=== PATIENT | female | born 1945 | race Caucasian/White ===

== ENCOUNTER 2024-07-02 15:48 | Inpatient (IN) | payer MEDICARE, OTHER, SELFPAY ==
[2024-07-02] VITALS (10 sets, daily range): BP systolic 107–153; BP diastolic 50–106
--- NOTE | 2024-07-02 10:38 | ED.GENMED ---
History of Present Illness
<Damian Flynn PA-C - Last Filed: 07/02/24 14:14>
General
Chief Complaint: Weakness
Source: patient
Time Seen by Provider: 07/02/24 09:53
History of Present Illness
History of Present Illness:
79-year-old female with past medical history of hypertension and hyperlipidemia presenting to the emergency department for evaluation of persistent chills/rigors that she feels has been ongoing since the beginning of May. Initially when
symptoms started patient states she had continuous diarrhea which lasted about 1 week and notes that the diarrhea has been waxing and waning but has not had this for the last 1 to 2 weeks. She states that while she has felt very hot she has not
checked her temperature during the time where she has had the symptoms. Patient denies any other symptoms including nausea, vomiting, change in oral intake, chest pain, shortness of breath, abdominal pain. She does admit to feeling generally weak
but this is usually only when her chills/rigors are occurring.
Past History
<Damian Flynn PA-C - Last Filed: 07/02/24 14:14>
Past History
ED Past Medical History: HTN and Hypercholesterolemia
ED Past Surgical History: None
Social History
Tobacco: Non-smoker
Alcohol: Daily (wine 1-2 glasses)
Drug: None
Personal:
Living: with family
Review of Systems
<Damian Flynn PA-C - Last Filed: 07/02/24 14:14>
Review of Systems
All Other Systems: ROS reviewed and negative except as documented in HPI and ROS
Phy Exam
<Damian Flynn PA-C - Last Filed: 07/02/24 14:14>
Physical Exam
Physical Exam:
GENERAL: Alert , in no apparent distress
EYE: clear conjunctiva b/l
HEAD: NCAT
ENT: mmm.
CARDIAC: Regular rate and rhythm .
LUNGS: Clear breath sounds bilaterally, no acute respiratory distress, no wheezes/rales/rhonchi
ABDOMEN: Soft, without focal tenderness, no r/g, no cvat, negative Lovelace sign, no tenderness at McBurney's point
NEUROLOGICAL: Alert and oriented
SKIN: Warm and dry, skin intact.
MUSCULOSKELETAL: well perfused.
PSYCH: Normal and appropriate interaction.
Scores
<Damian Flynn PA-C - Last Filed: 07/02/24 14:14>
Heart Failure Risk
Heart Failure Risk Score: Not Applicable
Heart Score for Chest Pain Patients
STEMI patient?: Not applicable
Withdrawal Assessment of Alcohol
Withdrawal Assessment Completed?: Not applicable
Course
<Damian Flynn PA-C - Last Filed: 07/02/24 14:14>
Orders/Labs/Results
Orders:
Orders
07/02/24 10:25
Complete Blood Count/With Diff Urgent
Comprehensive Metabolic Panel Urgent
Lactic Acid Q4H
Comment: CANCEL 2nd LACTIC ACID IF 1st LACTIC ACID IS LESS THAN 2
Lipase Urgent
Magnesium Urgent
TSH Urgent
Urinalysis Reflex To Culture Urgent
Date Specimen was Collected: 07/02/24
Time Specimen was Collected: 10:16
Urine Microscopic Reflex Cult Urgent
Blood Culture Q30M
[facility] Source: Blood/Venous
Specimen Description:
Blood Culture Q30M
[facility] Source: Blood/Venous
Specimen Description:
Urine Culture Urgent
[facility] Source: U
Specimen Description:
Date Specimen was Collected: 07/02/24
Time Specimen was Collected: 10:16
07/02/24 11:21
CT Abd/pel Without Iv Or Oral Urgent
Comment:
Reason For Exam: renal failure, elevated LFT
07/02/24 11:25
0.9% Sodium Chloride 1000 ml [Nss] 1,000 ml IV BOLUS
CefTRIAXone [Rocephin] 1,000 mg IV NOW STA
Abnormal Lab Results
07/02/24
10:25
WBC 14.5 H 10^3/uL
(4.8-10.8)
RBC 3.74 L 10^6/uL
(4.20-5.40)
Hgb 10.5 L g/dL
(12.0-16.0)
Hct 31.7 L %
(37.0-47.0)
RDW 15.0 H %
(11.5-14.5)
Abs Immat Gran (auto) 0.2 H 10^3/uL
(0-0.05)
Absolute Neuts (auto) 12.3 H 10^3/uL
(1.4-6.5)
Absolute Lymphs (auto) 1.0 L 10^3/uL
(1.2-3.4)
Absolute Monos (auto) 0.9 H 10^3/uL
(0.1-0.6)
Immature Gran % 1.4 H %
(0-0.5)
Neutrophils % 84.9 H %
(42.2-75.2)
Lymphocytes % 6.8 L %
(20.5-51.1)
Carbon Dioxide 19 L mmol/L
(22-30)
BUN 66 H mg/dl
(7-17)
Creatinine 6.1 H* mg/dL
(0.6-1.0)
Glucose 106 H mg/dl
(70-99)
AST 62 H U/L
(14-36)
ALT 67 H U/L
(0-35)
Alkaline Phosphatase 136 H U/L
(38-126)
Total Protein 6.2 L g/dl
(6.3-8.2)
Ur Occult Blood Reflex 4+ A
(Negative)
Leukocyte Esterase Rfl 3+ A
(Negative)
Urine RBC 21-25 A /HPF
(0-2)
Urine WBC (Reflex) 70-80 A /HPF
(0-5)
Urine Albumin (Reflex) 2+ A
(Neg - Trace)
07/02/24 10:25
07/02/24 10:25
Vital Signs
Initial and Last Documented VS:
Initial Vital Signs
Temp Pulse Resp BP Pulse Ox
98.6 F 102 18 153/80 95
07/02/24 08:40 07/02/24 08:40 07/02/24 08:40 07/02/24 08:40 07/02/24 08:40
Last Documented Vital Signs
Temp Pulse Resp BP Pulse Ox
98.6 F 102 18 153/80 95
07/02/24 08:40 07/02/24 08:40 07/02/24 08:40 07/02/24 08:40 07/02/24 08:40
Director Informatics consulted with Physician
Director Informatics consulted with physician?: Yes
Name of Physician Consulted: Roxanna
<Farooq Muir, DO - Last Filed: 07/02/24 13:38>
Orders/Labs/Results
Orders:
Orders
07/02/24 10:25
Complete Blood Count/With Diff Urgent
Comprehensive Metabolic Panel Urgent
Lactic Acid Q4H
Comment: CANCEL 2nd LACTIC ACID IF 1st LACTIC ACID IS LESS THAN 2
Lipase Urgent
Magnesium Urgent
TSH Urgent
Urinalysis Reflex To Culture Urgent
Date Specimen was Collected: 07/02/24
Time Specimen was Collected: 10:16
Urine Microscopic Reflex Cult Urgent
Blood Culture Q30M
[facility] Source: Blood/Venous
Specimen Description:
Blood Culture Q30M
[facility] Source: Blood/Venous
Specimen Description:
Urine Culture Urgent
[facility] Source: U
Specimen Description:
Date Specimen was Collected: 07/02/24
Time Specimen was Collected: 10:16
07/02/24 11:21
CT Abd/pel Without Iv Or Oral Urgent
Comment:
Reason For Exam: renal failure, elevated LFT
07/02/24 11:25
0.9% Sodium Chloride 1000 ml [Nss] 1,000 ml IV BOLUS
CefTRIAXone [Rocephin] 1,000 mg IV NOW STA
Abnormal Lab Results
07/02/24
10:25
WBC 14.5 H 10^3/uL
(4.8-10.8)
RBC 3.74 L 10^6/uL
(4.20-5.40)
Hgb 10.5 L g/dL
(12.0-16.0)
Hct 31.7 L %
(37.0-47.0)
RDW 15.0 H %
(11.5-14.5)
Abs Immat Gran (auto) 0.2 H 10^3/uL
(0-0.05)
Absolute Neuts (auto) 12.3 H 10^3/uL
(1.4-6.5)
Absolute Lymphs (auto) 1.0 L 10^3/uL
(1.2-3.4)
Absolute Monos (auto) 0.9 H 10^3/uL
(0.1-0.6)
Immature Gran % 1.4 H %
(0-0.5)
Neutrophils % 84.9 H %
(42.2-75.2)
Lymphocytes % 6.8 L %
(20.5-51.1)
Carbon Dioxide 19 L mmol/L
(22-30)
BUN 66 H mg/dl
(7-17)
Creatinine 6.1 H* mg/dL
(0.6-1.0)
Glucose 106 H mg/dl
(70-99)
AST 62 H U/L
(14-36)
ALT 67 H U/L
(0-35)
Alkaline Phosphatase 136 H U/L
(38-126)
Total Protein 6.2 L g/dl
(6.3-8.2)
Ur Occult Blood Reflex 4+ A
(Negative)
Leukocyte Esterase Rfl 3+ A
(Negative)
Urine RBC 21-25 A /HPF
(0-2)
Urine WBC (Reflex) 70-80 A /HPF
(0-5)
Urine Albumin (Reflex) 2+ A
(Neg - Trace)
07/02/24 10:25
07/02/24 10:25
Vital Signs
Initial and Last Documented VS:
Initial Vital Signs
Temp Pulse Resp BP Pulse Ox
98.6 F 102 18 153/80 95
07/02/24 08:40 07/02/24 08:40 07/02/24 08:40 07/02/24 08:40 07/02/24 08:40
Last Documented Vital Signs
Temp Pulse Resp BP Pulse Ox
98.6 F 102 18 153/80 95
07/02/24 08:40 07/02/24 08:40 07/02/24 08:40 07/02/24 08:40 07/02/24 08:40
<Damian Flynn PA-C - Last Filed: 07/02/24 14:14>
MDM/Problems Addressed
Differential Diagnosis Includes:
electrolyte derangement, dehydration, bacteremia, less concern for gastroenteritis/C. difficile colitis given patient has no current diarrhea, urinary tract infection, COVID/flu
MDM/Problems Addressed:
79-year-old female presenting to the emergency department for evaluation of chills/rigors that began around 1 month ago if not longer, associated with diarrhea at the time however patient states the diarrhea is now resolved. Patient with continued
chills and rigors. She is afebrile here, mildly tachycardic. Unclear etiology for patient's symptoms as she is overall quite well-appearing and in no acute distress. Will check labs including lactic acid and blood cultures. Disposition pending
<Damian Flynn PA-C - Last Filed: 07/02/24 14:14>
*Radiology
Radiology exam reviewed: radiology read reviewed
*Pulse Oximetry
Patient hypoxic: no
*[employer] Interpretation
Rate: normal
Rhythm: sinus
Data Reviewed
Review of Other/Old Records Reveals: Labs and Records
<Farooq Muir DO - Last Filed: 07/02/24 13:38>
*Critical Care Note
Total Time (30-74mins, 75-104mins- exclusive of procedures): 35 minutes
<Damian Flynn PA-C - Last Filed: 07/02/24 14:14>
Comment
Comment:
Patient has a leukocytosis of 14,000, there is a leftward shift. Patient's chemistry came back significantly deranged with a bicarb of 19, BUN of 66, creatinine of 6.1. Patient also has a elevated AST/ALT and alkaline phosphatase. Urinalysis
shows 4+ microscopic blood, 3+ leukocyte esterase, 70- WBCs. Question obstructive uropathy, hepatorenal syndrome? Patient will require admission given her significant acute renal failure. CT ordered. Will discuss with hospitalist for admission
pending CT
Patient Management
Discussion with other providers: Hospitalist and Director Of Finance
Escalation/DeEscalation of care consider admission/obs:
CT scan shows the following:
IMPRESSION:
Moderate right hydronephrosis secondary to a large right UPJ stone.
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
I notified on-call urologist, Dr. Tidwell, who plans to take patient to the OR for stent later this afternoon. Hospitalist team notified and accepts patient for continued evaluation and treatment.
ED Attending Note
<Damian Flynn PA-C - Last Filed: 07/02/24 14:14>
-
Portions of this chart may have been created with voice recognition software.� Occasional wrong word or��sound alike� substitutions may have occurred due to the inherent limitations of voice recognition software.
<Farooq Muir DO - Last Filed: 07/02/24 13:38>
ED Attending Note
Patient seen and examined by attending physician: Yes
I performed the substantive portion of visit, reviewed & personally made and approve the management plan that is documented in note by myself or PAT.: Yes
Discharge Plan
Departure
Patient Disposition: Admit
Date of Disposition: 07/02/24
Time of Disposition: 12:33
Presentation/result/management discussed w/ accepting MD/DO: Hospitalist
Discharge Problem:
Acute renal failure, Urinary tract infection
Prescriptions:
No Action
latanoprost 1 DROP drops
1 drp RIGHT EYE HS
atorvastatin 20 MG tablet
20 mg PO QPM
amlodipine 10 MG tablet
10 mg PO DAILY
ibuprofen [Advil] 200 mg Tablet
400 mg PO Q8HPRN PRN (Reason: MILD PAIN)
risedronate 150 mg Tablet
150 mg PO QMONTH
Referrals:
Usha Casey DO [Family Provider] -
Interventions
Interventions:
*General Assessment Last Done: 07/02/24 10:34
*Neglect/Abuse Screening Last Done: 07/02/24 10:34
*ED- Fall Risk Assessment Last Done: 07/02/24 10:34
*ED COVID-19 Vaccine History Last Done: 07/02/24 10:34
ED- Cardiac Assessment Last Done: 07/02/24 10:34
ED- Neurological Assessment Last Done: 07/02/24 10:34
ED- Pulmonary Assessment Last Done: 07/02/24 10:34
Discharge Date and Time
Print Language: TAJIK
[2024-07-02 10:40] LABS: % Basophils 0.3 % (0-2); % Eosinophils 0.5 % (0-6); % Immature Granulocytes 1.4 % (0-0.5); % Lymphocytes 6.8 % (20.5-51.1); % Monocytes 6.1 % (1.7-9.3); % Neutrophils 84.9 % (42.2-75.2); Absolute Basophils 0.1 10^3/uL (0-0.2); Absolute Eosinophils 0.1 10^3/uL (0-0.7); Absolute Immature Granulocytes 0.2 10^3/uL (0-0.05); Absolute Monocytes 0.9 10^3/uL (0.1-0.6); Absolute Neutrophils 12.3 10^3/uL (1.4-6.5); Hematocrit 31.7 % (37.0-47.0); Hemoglobin 10.5 g/dL (12.0-16.0); Mean Corp Hgb Conc. 33.1 g/dL (33.0-37.0); Mean Corpuscular Hgb 28.1 pg (27.0-31.0); Mean Corpuscular Volume 84.8 fL (81.0-99.0); Mean Platelet Volume 10.4 fL (7.4-10.4); Nucleated Red Blood Cells % 0 %; Platelet Count 167 10^3/uL (130-400); Red Blood Cell Count 3.74 10^6/uL (4.20-5.40); White Blood Cell Count 14.5 10^3/uL (4.8-10.8)
[2024-07-02 10:45] LABS: Urine Albumin 2+ (Neg - Trace); Urine Bilirubin Negative (Negative); Urine Character Slightly Cloudy (Clear); Urine Color Yellow; Urine Glucose Negative (Negative); Urine Ketone Negative (Negative); Urine Leukocyte 3+ (Negative); Urine Nitrite Negative (Negative); Urine Occult Blood 4+ (Negative); Urine Specific Gravity 1.005 (<1.030); Urine Urobilinogen Negative (Neg - 1+); Urine pH 6.5 (5.0-9.0)
[2024-07-02 10:51] LABS: Lactic Acid 0.9 mmol/L (0.7-2.0)
[2024-07-02 11:15] LABS: ALT (SGPT) 67 U/L (0-35); AST (SGOT) 62 U/L (14-36); Albumin 3.6 g/dl (3.5-5.0); Alkaline Phosphatase 136 U/L (38-126); Blood Urea Nitrogen 66 mg/dl (7-17); Calcium 8.5 mg/dl (8.4-10.2); Carbon Dioxide 19 mmol/L (22-30); Chloride 105 mmol/L (98-107); Glucose 106 mg/dl (70-99); Lipase 154 U/L (23-300); Magnesium 2.2 mg/dl (1.6-2.3); Potassium 4.2 mmol/L (3.5-5.1); Sodium 138 mmol/L (135-145); Total Protein 6.2 g/dl (6.3-8.2); eGFR 6.58
[2024-07-02 11:18] LABS: Urine Squamous Cell >30 /LPF (Few)
[2024-07-02 11:19] LABS: Urine Amorphous Seen
[2024-07-02 11:21] LABS: TSH 2.05 uIU/ml (0.47-4.68); Urine Red Blood Cell 21-25 /HPF (0-2); Urine White Cell 70-80 /HPF (0-5)
[2024-07-02] MEDS: NSS 1000 IV ×2 (11:52→19:37)
[2024-07-02] MEDS: ROCEPHIN 1000 MG IV (11:53)
--- NOTE | 2024-07-02 14:48 | W.PN.UPDATE ---
Update Note
Progress Note Update
I personally performed a history and physical exam of the patient and discussed management with the resident. I reviewed the resident's note and agree with the documented findings and plan of care HPI/CC.
71-year-old female presents with chills/rigors and weakness.
153/80, 102, 18, 98.6 �F, 95% RA
Gen: NAD, AAOx3.
Eyes: EOMI, PERRLA, no scleral icterus.
Neck: supple.
CV: RRR, +S1/S2, no m/r/g.
Resp: CTAB, no rales, wheezes, or rhonchi.
Abd: +BS, soft, NT, ND
Skin: No rashes.
Neuro: CN 2-12 intact, non-focal.
Psych: Normal mood and affect.
Lab Results
07/02/24 07/02/24
10:25 14:15
WBC 14.5 H
RBC 3.74 L
Hgb 10.5 L
Hct 31.7 L
MCV 84.8
MCH 28.1
MCHC 33.1
RDW 15.0 H
Plt Count 167
MPV 10.4
Abs Immat Gran (auto) 0.2 H
Absolute Neuts (auto) 12.3 H
Absolute Lymphs (auto) 1.0 L
Absolute Monos (auto) 0.9 H
Absolute Eos (auto) 0.1
Absolute Basos (auto) 0.1
Immature Gran % 1.4 H
Neutrophils % 84.9 H
Lymphocytes % 6.8 L
Monocytes % 6.1
Eosinophils % 0.5
Basophils % 0.3
Nucleated RBC % 0
Sodium 138
Potassium 4.2
Chloride 105
Carbon Dioxide 19 L
BUN 66 H
Creatinine 6.1 H*
eGFR 6.58
Glucose 106 H
Lactic Acid 0.9 Cancelled
Calcium 8.5
Magnesium 2.2
Total Bilirubin 1.0
AST 62 H
ALT 67 H
Alkaline Phosphatase 136 H
Total Protein 6.2 L
Albumin 3.6
Lipase 154
TSH 2.05
Urine Color Yellow
Urine Clarity Slightly cloudy
Urine pH 6.5
Ur Specific [place] 1.005
Urine Ketones Negative
Ur Occult Blood Reflex 4+ A
Urine Nitrite (Reflex) Negative
Urine Bilirubin Negative
Urine Urobilinogen Negative
Leukocyte Esterase Rfl 3+ A
Urine RBC 21-25 A
Urine WBC (Reflex) 70-80 A
Ur Squamous Epith Cells >30
Ur Urothelial Cells 6-10
Amorphous Crystals Seen
Urine Glucose Negative
Urine Albumin (Reflex) 2+ A
CT A/P: Moderate right hydronephrosis secondary to a large right UPJ stone. 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
Sepsis due to acute urinary tract infection due to acute R ureterolithiasis:
-IV Rocephin
-follow BCxs/UCx
-Urology to place stent in OR today
-IVFs/NPO/pain control
NATALIE:
-Due to sepsis and acute R-sided hydronephrosis
-Urology to place stent in OR today
-IVFs
-renal c/s
--- NOTE | 2024-07-02 15:06 | HPS.HSE ---
Family Physician
-
Family Physician: Usha Casey
Chief Complaint
-
Weakness with fever/rigors and chills
History of Present Illness
79-year-old female with a past medical history of hypertension and hyperlipidemia presents to the emergency department on 07/02/2024 due to persistent chills/rigors and nausea that have been going on for more than a month and have now progressively
gotten worse. Her symptoms initially started alongside continuous diarrhea that lasted around a week and that it has been coming and going since then. She has not checked her temperature but she has felt hot and cold going from feverish to feeling
chills. Patient has also been having headaches and back aches for a few months as well. Along with these symptoms she has also had nausea around last week as well. Patient has had a history of kidney stones in the past for which she had surgery.
She says that last time she had kidney stones she had similar symptoms as to which she is currently having. She has not had any vomiting recently but she did have diffuse lower abdominal pain which has now since resolved. Currently she is feeling
very weak and also feeling some chills and rigors.
Medical History
Past Medical History
Past Medical History: Reports HTN, Hypercholesterolemia and Other (Kidney stones)
Past Surgical History: Reports Urological (Kidney stones)
Social History
Tobacco: Non-smoker
Alcohol: Daily (1 to 2 glasses of wine)
Drug: None
Personal:
Living: With Family
Family History
Family History: Other (Sister with history of kidney stones)
Allergies / Home Medications
Allergies reflects when Allergies were last updated in [facility].
Home Medications with original date entered in [facility]
Allergy/Medication List:
Allergies
Allergy/AdvReac Type Severity Reaction Status Date / Time
No Known Allergies Allergy Verified 03/25/21 09:51
Home Medications
amlodipine 10 mg tablet 10 mg PO DAILY Blood pressure 03/25/21
atorvastatin 20 mg tablet 20 mg PO QPM High cholesterol 03/25/21
latanoprost 0.005 % eye drops 1 drp RIGHT EYE HS Eye condition 03/25/21
ibuprofen 200 mg tablet (Advil) 400 mg PO Q8HPRN PRN MILD PAIN 07/02/24
risedronate 150 mg tablet 150 mg PO QMONTH 07/02/24
Review of Systems
-
History Source: Patient
A 12 point ROS was completed and negative except as noted: Yes
Constitutional: Reports Fatigue and Chills; Denies Fever
EENT: Reports No Symptoms
Respiratory: Denies Cough or Trouble Breathing
Cardiac: Denies Chest Pain, Diaphoresis, Palpitations or Syncope
Abdomen/GI: Reports Abdominal Pain and Nausea; Denies Vomiting, Diarrhea or Constipated
: Reports Flank Pain; Denies Dysuria, Difficulty Voiding or Urgency
Musculoskeletal: Reports No Symptoms
Skin: Reports No Symptoms
Neurological: Reports No Symptoms
Endocrine: Reports No Symptoms
Hematologic/Lymphatic: Reports No Symptoms
Psych: Reports Calm
Physical Exam
Vital Signs
Vital Signs
Temp Pulse Resp BP Pulse Ox
98.6 F 64 16 134/63 97
07/02/24 08:40 07/02/24 15:05 07/02/24 15:05 07/02/24 15:05 07/02/24 15:05
Physical Exam
General: Well Developed, Well Nourished, Comfortable, Conversant and Chills
HEENT: NormoCephalic, Anicteric, Moist mucous membranes and Atraumatic
Respiratory: Clear and Non Labored Respirations
Cardiac: S1/S2 and Regular Rhythm
GI: Soft, Non Tender and Non Distended
Genito-urinary: Costovertebral angle tend (Mild tenderness mainly on the right side)
Musculoskeletal: No Clubbing, No Cyanosis and No Edema
Skin: Warm
Neuro: Awake, Alert, Oriented and AO x 3
Psych: Calm and Intact Judgment/Insight
Laboratory Results
-
07/02/24 10:25
07/02/24 10:25
Laboratory Results
Lactic Acid Cancelled 07/02/24 14:15
Total Bilirubin 1.0 mg/dl (0.2-1.3) 07/02/24 10:25
AST 62 U/L (14-36) H 07/02/24 10:25
ALT 67 U/L (0-35) H 07/02/24 10:25
Alkaline Phosphatase 136 U/L (38-126) H 07/02/24 10:25
Lipase 154 U/L (23-300) 07/02/24 10:25
Data Reviewed
-
CT Scan: Report Reviewed by me, Discussed with Physician, Discussed with Patient and Discussed with Family
Lab Data: Labs Reviewed by me, Discussed with Physician, Discussed with Patient and Discussed with Family
Impression/Plan
-
Assessment:
79-year-old female with a past medical history of hypertension and hyperlipidemia presented to emergency department with a history of persistent chills/rigors that have been getting worse for the past month or so. In the ED patient was feeling
chills and costovertebral pain mainly on the right side. Patient was found to have moderate right sided hydronephrosis secondary to a large right UPJ stone on CT scan. Patient started on IV antibiotics and fluids in the ED and admitted to [facility]
for further management.
CT A/P (07/02/2024):
Moderate right hydronephrosis secondary to a large right UPJ stone.
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
1 mm nonobstructing right renal stone. Stable
Probable noncalcified gallstones. Stable.
Nonobstructing left renal stones. Stable
Small right and tiny left pleural effusions. Both new.
Too small to characterize hypodense hepatic lesions likely small cysts or hemangiomas. Stable
Tiny pericardial effusion versus pericardial thickening. Stable
Plan:
# Sepsis due to acute urinary tract infection due to acute right ureterolithiasis
-Patient started on IV antibiotics Rocephin
-Blood and urine cultures taken in the ED, will follow
-Urology consulted, input appreciated
-Plans to place ureteral stent in OR today
-Patient to continue to be NPO
-Continued IV fluid resuscitation
-Pain control as needed
# NATALIE due to acute right ureterolithiasis
-Probably secondary to sepsis/acute right-sided hydronephrosis
-Continued IV fluids resuscitation
-Urology consulted, input appreciated
-Plans to place ureteral stent in OR today
-Nephrology consulted, input appreciated
-Continue monitoring BMP in the morning
-NPO until procedure then will advance diet as tolerated
# Hypertension
-Holding amlodipine
-Will resume after symptom resolution
-Continue monitoring blood pressure
# Hyperlipidemia
-Continue atorvastatin
DVT prophylaxis: SCDs
Code Status: Limited DNR (spoke with patient and , no ventilator but want CPR and defibrillation)
--- NOTE | 2024-07-02 17:10 | CONS.URO ---
Consultation
-
Performing Provider: Peffer
Reason for Consultation: ARF, ureteral stones
Medical History
History of Present Illness
79F past history of kidney stones s/p procedure for large left prox ureteral stone in 2020, H hypertension and hyperlipidemia, presents to the emergency department on 07/02/2024 due to persistent chills/rigors and nausea that have been going on
for more than a month and have now progressively gotten worse.
Her symptoms initially started alongside continuous diarrhea that lasted around a week and that it has been coming and going since then. She has not checked her temperature but she has felt hot and cold going from feverish to feeling chills.
Patient has also been having headaches and back aches for a few months as well.
She says that last time she had kidney stones she had similar symptoms
Currently she is feeling very weak
On eval in ED, she was found to be in acute renal failure. CT scan showed chronically obstructed appearing L kidney with atrophy and acutely obstructed R kidney with large proximal ureteral stone
Elevated WBC and mild tachycardic, some relatively bland UA changes, no clear systemic infection/sepsis
Past Medical History
Past Medical History: Other (as above)
Past Surgical History: Urological
Social History
Tobacco: Non-smoker
Alcohol: None
Living: With Family
Family History
Family History: Reviewed & Not Pertinent
Allergies/Home Medications
Allergies
Allergy/AdvReac Type Severity Reaction Status Date / Time
No Known Allergies Allergy Verified 03/25/21 09:51
Home Medications
�Medication �Instructions �Recorded �Confirmed �Type
amlodipine 10 mg tablet 10 mg PO DAILY Blood pressure 03/25/21 07/02/24 History
atorvastatin 20 mg tablet 20 mg PO QPM High cholesterol 03/25/21 07/02/24 History
latanoprost 0.005 % eye drops 1 drp RIGHT EYE HS Eye condition 03/25/21 07/02/24 History
ibuprofen 200 mg tablet (Advil) 400 mg PO Q8HPRN PRN MILD PAIN 07/02/24 07/02/24 History
risedronate 150 mg tablet 150 mg PO QMONTH 07/02/24 07/02/24 History
Physical Exam
Vital Signs
Vital Signs
Temp Pulse Resp BP Pulse Ox
98.6 F 64 16 134/63 97
07/02/24 08:40 07/02/24 15:05 07/02/24 15:05 07/02/24 15:05 07/02/24 15:05
Lab / Testing Results
Laboratory Results
07/02/24 10:25
07/02/24 10:25
Physical Exam
General: Well Developed, Well Nourished and No Apparent Distress
Respiratory: Clear and Non Labored Respirations
GI: Soft and Non Tender
Genito-urinary: No Costovertebral Tend
Neuro: AO x 3
Psych: Calm and Intact Judgement
Assessment / Plan
-
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
s/p OR 07/02 for cystoscopy, bilateral retrograde pyelogram, R ureteral stent placement
R stent in good position
Unable to pass contrast, wire, or stent to left kidney
Jade in place for I/O and maximal drainage pending renal function improvement
UTI
- Empiric abx treatment for possible UTI pending cultures
- Cystitis apparent on cystoscopy. No purulent urine from above R ureteral stone
R ureteral stone
- Outpatient follow up after discharge for ureteroscopy/laser lithotripsy
L UPJ obstruction
- Atrophic left kidney appears to have very little functional parenchyma and ureter is completely obstructed/obliterated with no contrast passage - suspect chronic stricture related to prior proximal stone and surgery in 2020
- Likely little benefit to percutaneous nephrostomy tube placement, as it would not substantially improve her overall renal function
- No intervention recommended for L kidney. Should this become problematic in the future nephrectomy could be considered
Data Reviewed
-
CT Scan: Image personally visualized and interpreted
Lab Data: Labs Reviewed
Old Records: Reviewed
[2024-07-02] MEDS: LIPITOR 20 MG PO (19:38)
[2024-07-02] MEDS: XALATAN OPHTHALMIC SOLUTION 1 DROP RIGHT EYE (21:38)
[2024-07-02] MEDS: TYLENOL 650 MG PO (21:38)
[2024-07-03] MEDS: TYLENOL PO (00:27)
[2024-07-03] MEDS: NSS 1000 IV ×2 (03:32→11:29)
[2024-07-03] MEDS: TYLENOL 650 MG PO ×4 (03:32→23:10)
[2024-07-03 06:11] LABS: Hematocrit 30.2 % (37.0-47.0); Mean Corp Hgb Conc. 33.1 g/dL (33.0-37.0); Mean Corpuscular Hgb 27.9 pg (27.0-31.0); Mean Corpuscular Volume 84.1 fL (81.0-99.0); Mean Platelet Volume 11.5 fL (7.4-10.4); Platelet Count 159 10^3/uL (130-400); Red Blood Cell Count 3.59 10^6/uL (4.20-5.40); Red Cell Dist. Width 15.2 % (11.5-14.5); White Blood Cell Count 14.7 10^3/uL (4.8-10.8)
--- NOTE | 2024-07-03 06:25 | W.PN.HOSP.TC ---
Today's Communication/Plan
-
Continue monitoring for any pain, continue antibiotics. Follow-up blood cultures and urine cultures as they come
Assessment / Plan
Assessment / Plan
Assessment:
79-year-old female with a past medical history of hypertension and hyperlipidemia presented to emergency department with a history of persistent chills/rigors that have been getting worse for the past month or so. In the ED patient was feeling
chills and costovertebral pain mainly on the right side. Patient was found to have moderate right sided hydronephrosis secondary to a large right UPJ stone on CT scan. Patient started on IV antibiotics and fluids in the ED and admitted to [facility]
for further management. Patient underwent cystoscopy, bilateral retrograde pyelogram with right ureteral stent placement. Patient will have outpatient follow up after discharge for ureteroscopy/laser lithotripsy. No intervention was done for the
left kidney.
CT A/P (07/02/2024):
Moderate right hydronephrosis secondary to a large right UPJ stone.
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
1 mm nonobstructing right renal stone. Stable
Probable noncalcified gallstones. Stable.
Nonobstructing left renal stones. Stable
Small right and tiny left pleural effusions. Both new.
Too small to characterize hypodense hepatic lesions likely small cysts or hemangiomas. Stable
Tiny pericardial effusion versus pericardial thickening. Stable
Plan:
# Sepsis due to acute urinary tract infection due to acute right ureterolithiasis
-Patient started on empiric IV antibiotics Rocephin
-Blood and urine cultures taken in the ED, will follow and change abx as needed
-Blood culture positive for Proteus, awaiting sensitivities
-Urology consulted, input appreciated
-Continued IV fluid resuscitation
-Pain control as needed
-Patient underwent cystoscopy, bilateral retrograde pyelogram with right ureteral stent placement
-Cystitis was apparent on cystoscopy but no purulent urine was found come from above the right ureteral stone
# NATALIE due to acute right ureterolithiasis
-Probably secondary to sepsis/acute right-sided hydronephrosis
-Continued IV fluids resuscitation
-Urology consulted, input appreciated
-Patient underwent cystoscopy, bilateral retrograde pyelogram with right ureteral stent placement
-Plans for outpatient follow up for ureteroscopy/laser lithotripsy
-Left kidney found to be atrophic and no intervention was recommended. Future nephrectomy recommended if any problems arise
-Patient advanced to regular diet after procedure as per urology
-Nephrology consulted, input appreciated
-Changed IVF to half saline as per Nephrology
-Continue monitoring BMP
-Monitor I/Os for urine output
-Jade in place
# Hypertension
-Holding amlodipine
-Will resume after symptom resolution
-Continue monitoring blood pressure
# Hyperlipidemia
-Continue atorvastatin
#Osteoporosis
-holding risedronate due to elevated creatinine levels
DVT prophylaxis: SCDs
Code Status: Limited DNR (spoke with patient and , no ventilator but want CPR and defibrillation)
Anticipated Discharge: 24 - 48 hours
Subjective/Interval History
-
Date of Service: July 03, 2024
Patient has been feeling much better since the procedure yesterday. Reports no further nausea/vomiting, abdominal pain, chills, or fever.
Objective Data
-
Labs:
Laboratory Results
07/03/24
05:30
WBC 14.7 H
Hgb 10.0 L
Hct 30.2 L
Plt Count 159
Sodium Pending
Potassium Pending
Chloride Pending
Carbon Dioxide Pending
BUN Pending
Creatinine Pending
Glucose Pending
Calcium Pending
Vital Signs:
Vital Signs
Temp Pulse Resp BP Pulse Ox
97.9 F 72 18 122/63 94
07/02/24 23:21 07/02/24 23:21 07/02/24 23:21 07/02/24 23:21 07/02/24 23:21
I&O
07/01/24 07/02/24 07/03/24
06:59 06:59 06:59
Intake Total 100 / 100
Output Total 75 / 75
Balance
Review of Systems
-
History Source: Patient
Constitutional: Denies Fever, Fatigue, Chills or Weakness
EENT: Reports No Symptoms Reported
Respiratory: Denies Cough or Trouble Breathing
Cardiac: Denies Chest Pain or Palpitations
Abdomen/GI: Denies Abdominal Pain, Nausea, Vomiting or Diarrhea
Genitourinary: Denies Dysuria, Flank Pain or Difficulty Voiding
Musculoskeletal: Reports No Symptoms
Skin: Reports No Symptoms
Neuro: Reports No Symptoms
Physical Exam
-
General: Well Developed, Well Nourished, No Apparent Distress, Comfortable and Conversant
HEENT: Normocephalic and Atraumatic
Respiratory: Clear to Auscultation and Non Labored Respirations
Cardiac: Regular Rhythm and S1/S2
GI: Soft and Nontender
Genito-urinary: No Costovertebral Tender and Jade
Musculoskeletal: No Clubbing, No Cyanosis and No Edema
Skin: Warm
Neuro: Awake, Alert and Oriented
Psych: Calm
Data Reviewed
-
Medical Tests (Nuc Med, Echo etc): Report Reviewed by me, Discussed with Physician and Discussed with Patient
Labs: Labs Reviewed by me, Discussed with Physician and Discussed with Patient
[2024-07-03 06:34] LABS: Blood Urea Nitrogen 57 mg/dl (7-17); Calcium 8.1 mg/dl (8.4-10.2); Carbon Dioxide 21 mmol/L (22-30); Chloride 109 mmol/L (98-107); Estimated Creatinine Clearance 10 ml/min; Glucose 177 mg/dl (70-99); Sodium 141 mmol/L (135-145); eGFR 9.49
[2024-07-03 07:20] VITALS: BP 130/63
--- NOTE | 2024-07-03 10:34 | W.PN.UPDATE ---
Update Note
Progress Note Update
I saw and evaluated the patient. I reviewed the resident�s note and agree with findings and plan as documented in the resident�s note.
No new complaints.
Gen: NAD, Awake and alert
Eyes: EOMI, PERRLA, no scleral icterus.
Neck: supple.
CV: remains RRR, +S1/S2, no m/r/g.
Resp: remains CTAB, no rales, wheezes, or rhonchi.
Abd: +BS, soft, NT, ND
Skin: No rashes.
Neuro: CN 2-12 intact, non-focal.
Psych: Normal mood and affect.
07/02/24 10:25 Blood/Venous Blood Culture - Preliminary
No Growth in 24 hours- Final report to follow
07/02/24 10:25 Blood/Venous Blood Culture - Preliminary
Positive culture in progress
07/02/24 10:25 Blood/Venous Gram Stain - Final
CT A/P: Moderate right hydronephrosis secondary to a large right UPJ stone. 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
NATALIE and sepsis due to acute urinary tract infection due to acute R ureterolithiasis:
-NATALIE due to sepsis and acute R-sided hydronephrosis
-s/p OR 07/02/24 for cystoscopy, bilateral retrograde pyelogram, R ureteral stent placement
-Cr improving, afebrile, no leukocytosis
-cont IV Rocephin
-follow BCxs/UCx
-IVFs/pain control
-renal c/s
Other problems:
Essential HTN: Home Norvasc on hold, current BPs acceptable
HLD: cont statin
Limited DNR/heparin
[2024-07-03] MEDS: HEPARIN 5000 UNITS SC ×3 (11:27→22:59)
[2024-07-03] MEDS: STERILE WATER FOR INJECTION 10 ML IV (11:28)
[2024-07-03] MEDS: ROCEPHIN 1000 MG IV (11:28)
--- NOTE | 2024-07-03 11:30 | W.CON.NEPH ---
Consultation
-
Date/Time Consultation Requested: July 02, 2024 at 4 PM
Date/Time Consultation Performed: July 03, 2024 at 10 AM
Requesting Provider: Dr. Montenegro
Performing Provider: Dr. Roque
Reason for Consultation: Acute kidney
Medical History
-
Chief Complaint: Acute kidney injury
History of Present Illness:
79-year-old female with a past medical history of hypertension and hyperlipidemia presents to the emergency department on 07/02/2024 due to persistent chills/rigors and nausea that have been going on for more than a month. She was found to have an
acute right renal obstruction secondary to renal calculi.
She has a atrophic left kidney from chronic obstruction.
Renal consult for acute kidney injury with a creatinine of 6 the baseline normal renal function.
She is status post right ureteral stent placement
Past Medical History
hypertension and hyperlipidemia and renal calculi
Social History
Tobacco: Non-Smoker
Drug: None
Family History
Family History: Not Pertinent
Allergies / Home Medications
Allergy/AdvReac Type Severity Reaction Status Date / Time
No Known Allergies Allergy Verified 03/25/21 09:51
�Medication �Instructions �Recorded �Confirmed �Type
amlodipine 10 mg tablet 10 mg PO DAILY Blood pressure 03/25/21 07/02/24 History
atorvastatin 20 mg tablet 20 mg PO QPM High cholesterol 03/25/21 07/02/24 History
latanoprost 0.005 % eye drops 1 drp RIGHT EYE HS Eye condition 03/25/21 07/02/24 History
ibuprofen 200 mg tablet (Advil) 400 mg PO Q8HPRN PRN MILD PAIN 07/02/24 07/02/24 History
risedronate 150 mg tablet 150 mg PO QMONTH BONE HEALTH 07/02/24 07/02/24 History
Review of Systems
-
No chest pain shortness of breath flank pain or abdominal pain
All other systems: Negative unless noted
Physical Exam
Vital Signs
Vital Signs
Temp Pulse Resp BP Pulse Ox
97.6 F 62 16 130/63 96
07/03/24 07:20 07/03/24 07:20 07/03/24 07:20 07/03/24 07:20 07/03/24 07:20
Lab Results
WBC 14.7 10^3/uL (4.8-10.8) H 07/03/24 05:30
RBC 3.59 10^6/uL (4.20-5.40) L 07/03/24 05:30
Hgb 10.0 g/dL (12.0-16.0) L 07/03/24 05:30
Hct 30.2 % (37.0-47.0) L 07/03/24 05:30
Plt Count 159 10^3/uL (130-400) 07/03/24 05:30
Sodium 141 mmol/L (135-145) 07/03/24 05:30
Potassium 4.0 mmol/L (3.5-5.1) 07/03/24 05:30
Chloride 109 mmol/L (98-107) H 07/03/24 05:30
Carbon Dioxide 21 mmol/L (22-30) L 07/03/24 05:30
BUN 57 mg/dl (7-17) H 07/03/24 05:30
Creatinine 4.5 mg/dL (0.6-1.0) H* 07/03/24 05:30
eGFR 9.49 07/03/24 05:30
Glucose 177 mg/dl (70-99) H 07/03/24 05:30
Calcium 8.1 mg/dl (8.4-10.2) L 07/03/24 05:30
Albumin 3.6 g/dl (3.5-5.0) 07/02/24 10:25
Physical Exam
General no acute distress
HEENT no cephalic atraumatic extraocular muscle intact no scleral icterus no JVD neck supple
lungs clear to auscultation bilateral
heart regular S1-S2 positive
abdomen soft nontender positive bowel sounds
extremities no edema pulses present bilateral
Neurologically nonfocal alert and oriented x 3
Skin no lesions no abrasions no petechiae
Psych normal affect no bizarre behavior
Data Reviewed
-
CT Scan: Image Personally Visualized and interpreted
Labs: Labs Reviewed by me and Discussed with Nurse
Assessment/Plan
-
79-year-old female with a past medical history of hypertension and hyperlipidemia presents to the emergency department on 07/02/2024 due to persistent chills/rigors and nausea that have been going on for more than a month. She was found to have an
acute right renal obstruction secondary to renal calculi.
She has a atrophic left kidney from chronic obstruction.
Renal consult for acute kidney injury with a creatinine of 6 the baseline normal renal function.
She is status post right ureteral stent placement
Impression.
Acute kidney injury with a creatinine of 6 secondary to obstructive uropathy.
Last creatinine of record 2020 0.7
Nephrolithiasis
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
Hypertension.
Plan.
Status post ureteral stent right.
Jade catheter nonoliguric.
On normal saline with increasing sodium with postobstructive diuresis.
Changed to half-normal saline..
Antibiotic= protease urine culture
[2024-07-03] MEDS: 0.45%NACL 1000 IV ×3 (11:47→23:05)
--- NOTE | 2024-07-03 14:41 | W.PN.URO.CBU ---
Today's Communication / Plan
-
Continue antibiotic
Santos removal when I/O and renal function stabilizing - probably tomorrow
Assessment / Plan
-
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
s/p OR 07/02 for cystoscopy, bilateral retrograde pyelogram, R ureteral stent placement
R stent in good position
Unable to pass contrast, wire, or stent to left kidney
Santos in place for I/O and maximal drainage pending renal function improvement
UTI
- Continue antibiotics for proteus bacteremia/UTI
- Cystitis apparent on cystoscopy. No purulent urine from above R ureteral stone
R ureteral stone
- Outpatient follow up after discharge for ureteroscopy/laser lithotripsy
L UPJ obstruction
- Atrophic left kidney appears to have very little functional parenchyma and ureter is completely obstructed/obliterated with no contrast passage - suspect chronic stricture related to prior proximal stone and surgery in 2020
- Likely little benefit to percutaneous nephrostomy tube placement, as it would not substantially improve her overall renal function
- No intervention recommended for L kidney. Should this become problematic in the future nephrectomy could be considered
Diagnosis
-
Date of Service: July 03, 2024
-
Patient Diagnosis:
ARF
R ureteral stone
L UPJ obstruction/stricture
Bacteremia
s/p R stent placement 07/02
Post Op Day:
Subjective
-
feeling better today
stent/santos not bothersome
Objective
-
Vital Signs
Temp Pulse Resp BP Pulse Ox
97.6 F 62 16 130/63 96
07/03/24 07:20 07/03/24 07:20 07/03/24 07:20 07/03/24 07:20 07/03/24 13:18
Intake and Output
03/17/25 03/18/25 03/19/25
06:59 06:59 06:59
Intake Total 2140 / 2140 600 / 600
Output Total 4425 / 4425 750 / 750
Balance -2285 / -2285 -150 / -150
Intake:
Oral fluids 600 / 600 600 / 600
IV fluids (Total) 1540 / 1540
normosol 100 / 100
Output:
Urine, Santos 4425 / 4425 750 / 750
Laboratory Results
07/03/24 05:30
07/03/24 05:30
Physical Exam
-
General - well developed, well nourished, no acute distress
Chest - clear bilaterally
Abdomen - soft, non-tende
- santos with clear urine
--- NOTE | 2024-07-03 14:58 | CM ---
Initial assessment completed
Pt reports she lives with her in a ranch style home; [address]
Independent at baseline, no device, drives
DME - none
SNF/HH - no past hx
Has ride at d/c
PCP - Usha Casey
Pharm - [facility]
Plan - anticipate home no needs vs w/VN
[2024-07-03 15:25] VITALS: BP 128/64
[2024-07-03] MEDS: LIPITOR 20 MG PO (17:10)
[2024-07-03] MEDS: XALATAN OPHTHALMIC SOLUTION 1 DROP RIGHT EYE (21:28)
[2024-07-03 23:15] VITALS: BP 135/61
--- NOTE | 2024-07-04 05:00 | DOWNTIME ---
There was a [employer] Downtime on 07/04/2024 from 0100 to 07/05/2023 at 0420 . Downtime documentation of patient's care, including medication administrations, has been reconciled in the electronic record per guidelines. Refer to the
patient's paper chart under the miscellaneous tab to see printed paper medication records and downtime forms.
[2024-07-04 07:25] VITALS: BP 149/69
[2024-07-04 07:43] LABS: Hematocrit 32.2 % (37.0-47.0); Hemoglobin 10.6 g/dL (12.0-16.0); Mean Corp Hgb Conc. 32.9 g/dL (33.0-37.0); Mean Corpuscular Hgb 28.1 pg (27.0-31.0); Mean Corpuscular Volume 85.4 fL (81.0-99.0); Mean Platelet Volume 11.3 fL (7.4-10.4); Platelet Count 227 10^3/uL (130-400); Red Blood Cell Count 3.77 10^6/uL (4.20-5.40); Red Cell Dist. Width 15.4 % (11.5-14.5); White Blood Cell Count 16.2 10^3/uL (4.8-10.8)
[2024-07-04 08:02] LABS: Blood Urea Nitrogen 43 mg/dl (7-17); Calcium 7.8 mg/dl (8.4-10.2); Carbon Dioxide 22 mmol/L (22-30); Chloride 110 mmol/L (98-107); Estimated Creatinine Clearance 20 ml/min; Glucose 97 mg/dl (70-99); Potassium 3.8 mmol/L (3.5-5.1); Sodium 142 mmol/L (135-145); eGFR 21.22
[2024-07-04] MEDS: HEPARIN 5000 UNITS SC ×3 (09:02→23:39)
[2024-07-04] MEDS: 0.45%NACL 1000 IV ×3 (09:14→21:55)
--- NOTE | 2024-07-04 09:21 | W.PN.HOSP.TC ---
Today's Communication/Plan
-
Continue antibiotics, continue ambulation, continue IV fluids
Assessment / Plan
Assessment / Plan
Assessment:
79-year-old female with a past medical history of hypertension and hyperlipidemia presented to emergency department with a history of persistent chills/rigors that have been getting worse for the past month or so. In the ED patient was feeling
chills and costovertebral pain mainly on the right side. Patient was found to have moderate right sided hydronephrosis secondary to a large right UPJ stone on CT scan. Patient started on IV antibiotics and fluids in the ED and admitted to [facility]
for further management. Patient underwent cystoscopy, bilateral retrograde pyelogram with right ureteral stent placement. Patient will have outpatient follow up after discharge for ureteroscopy/laser lithotripsy. No intervention was done for the
left kidney. Patient has continued to recover well and is now feeling much better with no reported fever or chills. Has been ambulating and tolerating her diet.
CT A/P (07/02/2024):
Moderate right hydronephrosis secondary to a large right UPJ stone.
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
1 mm nonobstructing right renal stone. Stable
Probable noncalcified gallstones. Stable.
Nonobstructing left renal stones. Stable
Small right and tiny left pleural effusions. Both new.
Too small to characterize hypodense hepatic lesions likely small cysts or hemangiomas. Stable
Tiny pericardial effusion versus pericardial thickening. Stable
Plan:
# Sepsis due to acute urinary tract infection due to acute right ureterolithiasis
-Patient started on empiric IV antibiotics Rocephin
-Blood and urine cultures taken in the ED, will follow and change abx as needed
-Urine culture positive for Proteus and sensitive to cephalosporins
-Blood culture positive for Proteus and anaerobic gram-positive cocci in chains
-Urology consulted, input appreciated
-Continued IV fluid resuscitation
-Pain control as needed
-Patient underwent cystoscopy, bilateral retrograde pyelogram with right ureteral stent placement
-Cystitis was apparent on cystoscopy but no purulent urine was found come from above the right ureteral stone
-As per pharmacy, it is okay to continue ceftriaxone if patient is improving appropriately. Recommend changing to ampicillin/sulbactam if she was not improving due to increased activity against Enterococcus and Proteus
# NATALIE due to acute right ureterolithiasis
-Probably secondary to sepsis/acute right-sided hydronephrosis
-Continued IV fluids resuscitation
-Urology consulted, input appreciated
-Patient underwent cystoscopy, bilateral retrograde pyelogram with right ureteral stent placement
-Plans for outpatient follow up for ureteroscopy/laser lithotripsy
-Left kidney found to be atrophic and no intervention was recommended. Future nephrectomy recommended if any problems arise
-Patient advanced to regular diet after procedure as per urology
-Nephrology consulted, input appreciated
-Changed IVF to 50% sodium as per Nephrology
-Continue monitoring BMP
-Monitor I/Os for urine output
-Jade in place
# Hypertension
-Holding amlodipine
-Will resume after symptom resolution
-Continue monitoring blood pressure
# Hyperlipidemia
-Continue atorvastatin
#Osteoporosis
-holding risedronate due to elevated creatinine levels
DVT prophylaxis: Subcutaneous heparin
Code Status: Limited DNR (spoke with patient and , no ventilator but want CPR and defibrillation)
Anticipated Discharge: 24 - 48 hours
Subjective/Interval History
-
Date of Service: July 04, 2024
Patient says that she has been feeling much better and stronger was able to get out of the bed yesterday and today and walked around. Excited about being able to go home soon as her kidney function improves.
Objective Data
-
Labs:
Laboratory Results
07/04/24
06:44
WBC 16.2 H
Hgb 10.6 L
Hct 32.2 L
Plt Count 227 D
Sodium 142
Potassium 3.8
Chloride 110 H
Carbon Dioxide 22
BUN 43 H
Creatinine 2.3 H
Glucose 97
Calcium 7.8 L
Vital Signs:
Vital Signs
Temp Pulse Resp BP Pulse Ox
97.8 F 56 18 149/69 97
07/04/24 07:25 07/04/24 07:25 07/04/24 07:25 07/04/24 07:25 07/04/24 07:25
I&O
07/03/24 07/04/24 07/05/24
06:59 06:59 06:59
Intake Total 2140 / 2140 2520 / 2520
Output Total 4425 / 4425 5500 / 5500
Balance -2285 / -2285 -2980 / -2980
Review of Systems
-
History Source: Patient
Constitutional: Denies Fever, Fatigue, Chills or Weakness
EENT: Reports No Symptoms Reported
Respiratory: Denies Cough or Trouble Breathing
Cardiac: Denies Chest Pain or Palpitations
Abdomen/GI: Denies Abdominal Pain, Nausea, Vomiting or Diarrhea
Genitourinary: Denies Dysuria, Flank Pain or Difficulty Voiding
Musculoskeletal: Reports No Symptoms
Skin: Reports No Symptoms
Neuro: Reports No Symptoms
Physical Exam
-
General: Well Developed, Well Nourished, No Apparent Distress, Comfortable and Conversant
HEENT: Normocephalic and Atraumatic
Respiratory: Clear to Auscultation and Non Labored Respirations
Cardiac: Regular Rhythm and S1/S2
GI: Soft, Nontender and Nondistended
Genito-urinary: No Costovertebral Tender and Jade
Musculoskeletal: No Clubbing, No Cyanosis and No Edema
Skin: Warm
Neuro: Awake, Alert and Oriented
Psych: Calm
Data Reviewed
-
Labs: Labs Reviewed by me, Discussed with Physician and Discussed with Patient
--- NOTE | 2024-07-04 09:57 | W.PN.NEPH.PH ---
Today's Communication / Plan
-
Decrease IV fluids
Assessment/Plan
-
79-year-old female with a past medical history of hypertension and hyperlipidemia presents to the emergency department on 07/02/2024 due to persistent chills/rigors and nausea that have been going on for more than a month. She was found to have an
acute right renal obstruction secondary to renal calculi.
She has a atrophic left kidney from chronic obstruction.
Renal consult for acute kidney injury with a creatinine of 6 the baseline normal renal function.
She is status post right ureteral stent placement
Impression.
Acute kidney injury with a creatinine of 6 secondary to obstructive uropathy.
Last creatinine of record 2020 0.7
Nephrolithiasis
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
Hypertension.
Plan.
Decrease IV fluid rate
Follow BMP
-
-
Date of Service: July 04, 2024
CC / HPI / ROS
-
Chief Complaint:
NATALIE
History of Present Illness:
NATALIE/creatinine down to 2.3.
Jade removed today
Blood pressure stable
Nonoliguric
Review of Systems:
No chest pain or shortness of breath
Labs
-
Labs:
WBC 16.2 10^3/uL (4.8-10.8) H 07/04/24 06:44
RBC 3.77 10^6/uL (4.20-5.40) L 07/04/24 06:44
Hgb 10.6 g/dL (12.0-16.0) L 07/04/24 06:44
Hct 32.2 % (37.0-47.0) L 07/04/24 06:44
Plt Count 227 10^3/uL (130-400) D 07/04/24 06:44
Sodium 142 mmol/L (135-145) 07/04/24 06:44
Potassium 3.8 mmol/L (3.5-5.1) 07/04/24 06:44
Chloride 110 mmol/L (98-107) H 07/04/24 06:44
Carbon Dioxide 22 mmol/L (22-30) 07/04/24 06:44
BUN 43 mg/dl (7-17) H 07/04/24 06:44
Creatinine 2.3 mg/dL (0.6-1.0) H 07/04/24 06:44
eGFR 21.22 07/04/24 06:44
Glucose 97 mg/dl (70-99) 07/04/24 06:44
Calcium 7.8 mg/dl (8.4-10.2) L 07/04/24 06:44
Albumin 3.6 g/dl (3.5-5.0) 07/02/24 10:25
Physical Exam
-
Vital Signs:
Vital Signs
Temp Pulse Resp BP Pulse Ox
97.8 F 56 18 149/69 97
07/04/24 07:25 07/04/24 07:25 07/04/24 07:25 07/04/24 07:25 07/04/24 07:25
Cardiovascular:: Regular rate and rhythm
Respiratory:: Bilateral: CTA
Lung Excursion:: Normal
Abdomen:: Nontender and Soft
Bowel Sounds:: Normal
Extremity Edema:: None: Bilateral:
[2024-07-04] MEDS: STERILE WATER FOR INJECTION 10 ML IV (11:33)
[2024-07-04] MEDS: ROCEPHIN 1000 MG IV (11:34)
--- NOTE | 2024-07-04 11:37 | W.PN.UPDATE ---
Update Note
Progress Note Update
I saw and evaluated the patient. I reviewed the resident�s note and agree with findings and plan as documented in the resident�s note.
Reports back pain O/N. Denies CP/SOB/abd pain.
Gen: NAD, Awake and alert
Eyes: EOMI, PERRLA, no scleral icterus.
Neck: supple.
CV: continues to remain RRR, +S1/S2, no m/r/g.
Resp: continues to remain CTAB, no rales, wheezes, or rhonchi.
Abd: remains +BS, soft, NT, ND
Skin: No rashes.
Neuro: CN 2-12 intact, non-focal.
Psych: Normal mood and affect.
07/02/24 10:25 Blood/Venous Blood Culture - Preliminary
No Growth in 24 hours- Final report to follow
07/02/24 10:25 Blood/Venous Blood Culture - Preliminary
Positive culture in progress
07/02/24 10:25 Blood/Venous Gram Stain - Final
CT A/P: Moderate right hydronephrosis secondary to a large right UPJ stone. 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
NATALIE and sepsis due to acute urinary tract infection due to acute R ureterolithiasis:
-NATALIE due to sepsis and acute R-sided hydronephrosis
-s/p OR 07/02/24 for cystoscopy, bilateral retrograde pyelogram, R ureteral stent placement
-Cr improving, afebrile, no leukocytosis
-cont IV Rocephin
-Cx data above, with bacteremia c/s ID
-follow BCxs/UCx
-cont IVFs/pain control
-renal following
-Cr improving
Other problems:
Essential HTN: Home Norvasc on hold, current BPs acceptable
HLD: cont statin
Multiple family members updated at bedside.
Limited DNR/heparin
--- NOTE | 2024-07-04 12:41 | W.PN.URO.CBU ---
Today's Communication / Plan
-
Continue UTI/bacteremia treatment
trend renal function
Remove santos
Maintain stent at discharge
Assessment / Plan
-
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
s/p OR 07/02 for cystoscopy, bilateral retrograde pyelogram, R ureteral stent placement
R stent in good position
Unable to pass contrast, wire, or stent to left kidney
UTI
- Continue antibiotics for proteus bacteremia/UTI
- Cystitis apparent on cystoscopy. No purulent urine from above R ureteral stone
- Trend leukocytosis - if any worsening sepsis may need to consider drainage of chronically obstructed left kidney
- Improving NATALIE - Remove santos today
R ureteral stone
- s/p stent placement
- Outpatient follow up after discharge for ureteroscopy/laser lithotripsy
L UPJ obstruction
- Atrophic left kidney appears to have very little functional parenchyma and ureter is completely obstructed/obliterated with no contrast passage - suspect chronic stricture related to prior proximal stone and surgery in 2020
- Likely little benefit to percutaneous nephrostomy tube placement, as it would not substantially improve her overall renal function
- No intervention recommended for L kidney. Should this become problematic in the future nephrectomy could be considered
Diagnosis
-
Date of Service: July 04, 2024
-
Patient Diagnosis:
Post Op Day:
Patient Diagnosis:
ARF
R ureteral stone
L UPJ obstruction/stricture
Bacteremia
s/p R stent placement 07/02
Post Op Day:
Subjective
-
Patient not in room
Objective
-
Vital Signs
Temp Pulse Resp BP Pulse Ox
97.8 F 56 18 149/69 97
07/04/24 07:25 07/04/24 07:25 07/04/24 07:25 07/04/24 07:25 07/04/24 07:25
Intake and Output
07/03/24 07/04/24 07/05/24
06:59 06:59 06:59
Intake Total 2140 / 2140 2520 / 2520
Output Total 4425 / 4425 5500 / 5500
Balance -2285 / -2285 -2980 / -2980
Intake:
Oral fluids 600 / 600 1920 / 1920
IV fluids (Total) 1540 / 1540 600 / 600
normosol 100 / 100
Output:
Urine, Santos 4425 / 4425 5500 / 5500
Other:
Number of approximated LARGE 1
amounts of urine
Laboratory Results
07/04/24 06:44
07/04/24 06:44
Physical Exam
-
Patient not in room - not examined
--- NOTE | 2024-07-04 13:58 | CM ---
Chart reviewed
Remains on antibiotics
Trending labe
Plan - anticipate home no needs
[2024-07-04 15:40] VITALS: BP 148/64
[2024-07-04] MEDS: LIPITOR 20 MG PO (17:54)
[2024-07-04] MEDS: XALATAN OPHTHALMIC SOLUTION 1 DROP RIGHT EYE (21:55)
[2024-07-04 23:00] VITALS: BP 152/85
[2024-07-05 06:52] LABS: Hematocrit 34.2 % (37.0-47.0); Hemoglobin 11.1 g/dL (12.0-16.0); Mean Corp Hgb Conc. 32.5 g/dL (33.0-37.0); Mean Corpuscular Hgb 27.7 pg (27.0-31.0); Mean Corpuscular Volume 85.3 fL (81.0-99.0); Mean Platelet Volume 10.7 fL (7.4-10.4); Platelet Count 254 10^3/uL (130-400); Red Blood Cell Count 4.01 10^6/uL (4.20-5.40); Red Cell Dist. Width 15.5 % (11.5-14.5); White Blood Cell Count 10.4 10^3/uL (4.8-10.8)
[2024-07-05 07:15] VITALS: BP 147/76
[2024-07-05 07:28] LABS: Blood Urea Nitrogen 32 mg/dl (7-17); Calcium 8.5 mg/dl (8.4-10.2); Carbon Dioxide 26 mmol/L (22-30); Chloride 110 mmol/L (98-107); Estimated Creatinine Clearance 27 ml/min; Glucose 89 mg/dl (70-99); Potassium 4.1 mmol/L (3.5-5.1); Sodium 145 mmol/L (135-145)
[2024-07-05] MEDS: HEPARIN 5000 UNITS SC ×3 (08:02→23:12)
[2024-07-05] MEDS: MIRALAX 17 GRAMS PO (08:14)
--- NOTE | 2024-07-05 08:41 | W.PN.UPDATE ---
Update Note
Progress Note Update
I saw and evaluated the patient. I reviewed the resident�s note and agree with findings and plan as documented in the resident�s note.
No new complaints.
Gen: remains NAD, Awake and alert
Eyes: remains EOMI, PERRLA, no scleral icterus.
Neck: supple.
CV: RRR, +S1/S2, no m/r/g.
Resp: CTAB, no rales, wheezes, or rhonchi.
Abd: continues to remain +BS, soft, NT, ND
Skin: No rashes.
Neuro: CN 2-12 intact, non-focal.
Psych: Normal mood and affect.
07/02/24 10:25 Blood/Venous Blood Culture - Preliminary
Proteus mirabilis
Streptococcus species
07/02/24 10:25 Blood/Venous Gram Stain - Final
07/02/24 10:25 Blood/Venous Blood Culture - Preliminary
No Growth in 48 hours- Final report to follow
07/02/24 10:25 Urine Urine Culture - Final
Proteus mirabilis
CT A/P: Moderate right hydronephrosis secondary to a large right UPJ stone. 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
NATALIE and sepsis due to acute urinary tract infection due to acute R ureterolithiasis:
-NATALIE due to sepsis and acute R-sided hydronephrosis
-s/p OR 07/02/24 for cystoscopy, bilateral retrograde pyelogram, R ureteral stent placement
-Cr improving, afebrile, leukocytosis has resolved
-cont IV Rocephin
-Cx data above, with bacteremia c/s ID
-follow BCxs to completion, Cx data above
-cont IVFs/pain control
-renal following
-Cr improving
Other problems:
Essential HTN: Home Norvasc on hold, current BPs acceptable
HLD: cont statin
Multiple family members updated at bedside.
Limited DNR/heparin
--- NOTE | 2024-07-05 10:07 | W.PN.NEPH.PH ---
Today's Communication / Plan
-
cap IV fluids
Assessment/Plan
-
79-year-old female with a past medical history of hypertension and hyperlipidemia presents to the emergency department on 07/02/2024 due to persistent chills/rigors and nausea that have been going on for more than a month. She was found to have an
acute right renal obstruction secondary to renal calculi.
She has a atrophic left kidney from chronic obstruction.
Renal consult for acute kidney injury with a creatinine of 6 the baseline normal renal function.
She is status post right ureteral stent placement
Impression.
Acute kidney injury with a creatinine of 6 secondary to obstructive uropathy.
Last creatinine of record 2020 0.7
Nephrolithiasis
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
Hypertension.
Plan.
cap IV fluids
Follow BMP
-
-
Date of Service: July 05, 2024
CC / HPI / ROS
-
Chief Complaint:
NATALIE
History of Present Illness:
NATALIE/creatinine down to 1.7
Voiding without issues
Blood pressure stable
Nonoliguric
Review of Systems:
No chest pain or shortness of breath
Labs
-
Labs:
WBC 10.4 10^3/uL (4.8-10.8) 07/05/24 06:23
RBC 4.01 10^6/uL (4.20-5.40) L 07/05/24 06:23
Hgb 11.1 g/dL (12.0-16.0) L 07/05/24 06:23
Hct 34.2 % (37.0-47.0) L 07/05/24 06:23
Plt Count 254 10^3/uL (130-400) 07/05/24 06:23
Sodium 145 mmol/L (135-145) 07/05/24 06:23
Potassium 4.1 mmol/L (3.5-5.1) 07/05/24 06:23
Chloride 110 mmol/L (98-107) H 07/05/24 06:23
Carbon Dioxide 26 mmol/L (22-30) 07/05/24 06:23
BUN 32 mg/dl (7-17) H 07/05/24 06:23
Creatinine 1.7 mg/dL (0.6-1.0) H 07/05/24 06:23
eGFR 30.50 07/05/24 06:23
Glucose 89 mg/dl (70-99) 07/05/24 06:23
Calcium 8.5 mg/dl (8.4-10.2) 07/05/24 06:23
Albumin 3.6 g/dl (3.5-5.0) 07/02/24 10:25
Physical Exam
-
Vital Signs:
Vital Signs
Temp Pulse Resp BP Pulse Ox
98.0 F 74 16 147/76 97
07/05/24 07:15 07/05/24 07:15 07/05/24 07:15 07/05/24 07:15 07/05/24 07:15
Cardiovascular:: Regular rate and rhythm
Respiratory:: Bilateral: Coarse
Lung Excursion:: Normal
Abdomen:: Nontender and Soft
Bowel Sounds:: Normal
Extremity Edema:: None: Bilateral:
--- NOTE | 2024-07-05 10:43 | CON.ID ---
Consultation
-
Date/Time Consultation Requested: 07/04/2024 1134
Date/Time Consultation Performed: 07/05/2024 1030
Requesting Provider: Dr. Montenegro
Performing Provider: Dr. Willson
Reason for Consultation: Complicated urinary tract infection; bacteremia
Chief Complaint / Past History
History of Present Illness
Carol Patrick is a 79-year-old female being evaluated at the request of Dr. Montenegro in regards to complicated urinary tract infection. History is obtained from chart review, along with patient interview.
The patient presented to [facility] on 07/02/2024 following the development of chills and rigors which she reported has been going on since early May she notes that when symptoms initially started she had diarrhea lasting about 1 week,
and since that time the diarrhea has been intermittent but she notes none for the past 1 to 2 weeks. She admits to subjective fevers, but has not taken her temperature.
Initial workup in the ER did not reveal the patient to be febrile, but she was noted to have a leukocytosis, and to be in acute renal failure. Blood cultures obtained at the time of admission are positive for Proteus, as are urine cultures.
Radiographic imaging revealed hydronephrosis. The patient's hospital course thus far has been significant for evaluation by Urology, and the patient requiring ureteral stent placement. Infectious Diseases is asked to comment on further
antimicrobial therapy.
The patient denies any prior history of dysuria or hematuria. She does recall having back discomfort, which she attributed to underlying osteoarthritis.
Past History
Additional Past Medical History:
HTN
Dyslipidemia
Past Surgical History: None
Allergy History:
No Known Allergies Allergy (Verified 03/25/21 09:51)
Medications Reviewed: Yes
Current Antibiotics:
Rocephin 1 g IV every 24 hours
Social History
Tobacco: Non-Smoker
Alcohol: Daily
Drug: None
Personal:
Living: With Family
Employment: Retired
Family History
Family History: Not Pertinent
Review of Systems
Vital Signs
Temp Pulse Resp BP Pulse Ox
98.0 F 74 16 147/76 97
07/05/24 07:15 07/05/24 07:15 07/05/24 07:15 07/05/24 07:15 07/05/24 07:15
Physical Exam
Physical Exam
Constitutional: No Acute Distress, Comfortable and Non-toxic
Eyes: Pupils Equal, Pupils Round, No Conjunctival Hemorrhage and Sclera Anicteric
Oral: No Thrush and No Ulcers
Cardiovascular: Regular Rate and S1/S2; Negative S3/S4
Pulmonary: Clear; Negative Wheezes, Rales or Rhonchi
Gastrointestinal: Soft, Non Tender and Non Distended
Genito-Urinary: CVA Tenderness
Extremities: Negative Edema, Cyanosis or Erythema
Skin: Warm and Dry; Negative Rash or Jaundice
Neurological: Awake and Alert
Psychological: Calm
.
Lab / Diagnostic Study Results
07/05/24 06:23
07/05/24 06:23
Abs Immat Gran (auto) 0.2 10^3/uL (0-0.05) H 07/02/24 10:25
Absolute Neuts (auto) 12.3 10^3/uL (1.4-6.5) H 07/02/24 10:25
Absolute Lymphs (auto) 1.0 10^3/uL (1.2-3.4) L 07/02/24 10:25
Absolute Monos (auto) 0.9 10^3/uL (0.1-0.6) H 07/02/24 10:25
Absolute Basos (auto) 0.1 10^3/uL (0-0.2) 07/02/24 10:25
Immature Gran % 1.4 % (0-0.5) H 07/02/24 10:25
Neutrophils % 84.9 % (42.2-75.2) H 07/02/24 10:25
Lymphocytes % 6.8 % (20.5-51.1) L 07/02/24 10:25
Monocytes % 6.1 % (1.7-9.3) 07/02/24 10:25
Eosinophils % 0.5 % (0-6) 07/02/24 10:25
Basophils % 0.3 % (0-2) 07/02/24 10:25
Lactic Acid Cancelled 07/02/24 14:15
Ur Squamous Epith Cells >30 /LPF (Few) 07/02/24 10:25
Microbiology Results
Micro:
07/02/24 10:25 Blood Culture - Preliminary
Blood/Venous No Growth in 72 hours- Final report to follow
07/02/24 10:25 Blood Culture - Preliminary
Blood/Venous Proteus mirabilis
Streptococcus species
Gram Stain - Final
07/02/24 10:25 Urine Culture - Final
Urine Proteus mirabilis
Blood Culture Preliminary 07/02/24
Proteus mirabilis and
Streptococcus species
Organism 1 Proteus mirabilis
1. Proteus mirabilis
M.I.C. RX
--------- ---
Amoxicillin/Potas. Clavulanate <=8/4 S
Ampicillin <=8 S
Ampicillin/Sulbactam <=4/2 S
Aztreonam <=4 S
Cefazolin 4 I
Cefepime <=2 S
Ceftazidime <=1 S
Ceftriaxone <=1 S
Ertapenem <=0.5 S
Ciprofloxacin <=0.25 S
Gentamicin <=2 S
Meropenem <=1 S
Piperacillin/Tazobactam <=8 S
Tetracycline >8 R
Tobramycin <=2 S
Trimethoprim/Sulfamethoxazole <=2/38 S
Imaging:
07/02/2024 CT abdomen/pelvis: Moderate right hydronephrosis secondary to a large right UPJ stone. There is chronic left UPJ obstruction, with severe atrophy and severe hydronephrosis. Please see full dictation for additional detail.
Assessment / Plan
Proteus bacteremia
Complicated urinary tract infection
Obstructive uropathy
Leukocytosis
NATALIE; improving
HTN
Dyslipidemia
Recommendations:
Continue with ceftriaxone while an inpatient.
At time of discharge, transition to amoxicillin 500 mg p.o. 3 times daily, to continue through 07/17/2024.
Patient will need close follow-up in the outpatient setting by both Urology (for definitive stone management) and Nephrology (regarding recent NATALIE)
Patient counseled to follow closely after discharge for any worsening fevers or chills which could indicate a return of infection.
--- NOTE | 2024-07-05 10:58 | W.PN.HOSP.TC ---
Today's Communication/Plan
-
Continue antibiotics, patient may be cleared for discharge if continues to progress well
Assessment / Plan
Assessment / Plan
Assessment:
79-year-old female with a past medical history of hypertension and hyperlipidemia presented to emergency department with a history of persistent chills/rigors that have been getting worse for the past month or so. In the ED patient was feeling
chills and costovertebral pain mainly on the right side. Patient was found to have moderate right sided hydronephrosis secondary to a large right UPJ stone on CT scan. Patient started on IV antibiotics and fluids in the ED and admitted to [facility]
for further management. Patient underwent cystoscopy, bilateral retrograde pyelogram with right ureteral stent placement. Patient will have outpatient follow up after discharge for ureteroscopy/laser lithotripsy. No intervention was done for the
left kidney. Patient has continued to recover well and is now feeling much better with no reported fever or chills. Has been ambulating and tolerating her diet.
CT A/P (07/02/2024):
Moderate right hydronephrosis secondary to a large right UPJ stone.
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
1 mm nonobstructing right renal stone. Stable
Probable noncalcified gallstones. Stable.
Nonobstructing left renal stones. Stable
Small right and tiny left pleural effusions. Both new.
Too small to characterize hypodense hepatic lesions likely small cysts or hemangiomas. Stable
Tiny pericardial effusion versus pericardial thickening. Stable
Plan:
# Sepsis due to acute urinary tract infection due to acute right ureterolithiasis
-Blood and urine cultures taken in the ED, will follow and change abx as needed
-Urine culture positive for Proteus and sensitive to cephalosporins
-Blood culture positive for Proteus and anaerobic gram-positive cocci in chains
-Urology consulted, input appreciated
-Pain control as needed
-Patient underwent cystoscopy, bilateral retrograde pyelogram with right ureteral stent placement
-Cystitis was apparent on cystoscopy but no purulent urine was found come from above the right ureteral stone
-As per pharmacy, it is okay to continue ceftriaxone if patient is improving appropriately. Recommend changing to ampicillin/sulbactam if she was not improving due to increased activity against Enterococcus and Proteus
-Patient's Jade removed yesterday, has been urinating well without it
-Will continue on IV ceftriaxone, switch to p.o. antibiotics on discharge
-ID consulted for further evaluation of patient's antibiotics, input appreciated
# NATALIE due to acute right ureterolithiasis
-Probably secondary to sepsis/acute right-sided hydronephrosis
-Urology consulted, input appreciated
-Patient underwent cystoscopy, bilateral retrograde pyelogram with right ureteral stent placement
-Plans for outpatient follow up for ureteroscopy/laser lithotripsy
-Left kidney found to be atrophic and no intervention was recommended. Future nephrectomy recommended if any problems arise
-Patient advanced to regular diet after procedure as per urology
-Nephrology consulted, input appreciated
-IV fluids ended today
-Continue monitoring BMP
-Creatinine is much improved to 1.7 now
-Monitor I/Os for urine output
# Hypertension
-Holding amlodipine
-Will resume after symptom resolution
-Continue monitoring blood pressure
# Hyperlipidemia
-Continue atorvastatin
#Osteoporosis
-holding risedronate due to elevated creatinine levels
DVT prophylaxis: Subcutaneous heparin
Code Status: Limited DNR (spoke with patient and , no ventilator but want CPR and defibrillation)
Anticipated Discharge: Within 24 hours
Subjective/Interval History
-
Date of Service: July 05, 2024
Patient continues to feel well. Reported some back pain but was thought to be mainly due to back positioning in her bed. Says she has been going frequently to the bathroom for urination after her Jade was removed yesterday.
Objective Data
-
Labs:
Laboratory Results
07/05/24
06:23
WBC 10.4
Hgb 11.1 L
Hct 34.2 L
Plt Count 254
Sodium 145
Potassium 4.1
Chloride 110 H
Carbon Dioxide 26
BUN 32 H
Creatinine 1.7 H
Glucose 89
Calcium 8.5
Vital Signs:
Vital Signs
Temp Pulse Resp BP Pulse Ox
98.0 F 74 16 147/76 97
07/05/24 07:15 07/05/24 07:15 07/05/24 07:15 07/05/24 07:15 07/05/24 07:15
I&O
07/04/24 07/05/24 07/06/24
06:59 06:59 06:59
Intake Total 2520 / 2520 2760 / 2760
Output Total 5500 / 5500
Balance -2980 / -2980 2760 / 2760
Review of Systems
-
History Source: Patient
Constitutional: Denies Fever, Fatigue, Chills or Weakness
EENT: Reports No Symptoms Reported
Respiratory: Denies Cough or Trouble Breathing
Cardiac: Denies Chest Pain or Palpitations
Abdomen/GI: Denies Abdominal Pain, Nausea, Vomiting or Diarrhea
Genitourinary: Denies Dysuria, Flank Pain or Difficulty Voiding
Musculoskeletal: Reports No Symptoms
Skin: Reports No Symptoms
Neuro: Reports No Symptoms
Physical Exam
-
General: Well Developed, Well Nourished, No Apparent Distress, Comfortable and Conversant
HEENT: Normocephalic and Atraumatic
Respiratory: Clear to Auscultation and Non Labored Respirations
Cardiac: Regular Rhythm and S1/S2
GI: Soft, Nontender and Nondistended
Genito-urinary: No Costovertebral Tender
Musculoskeletal: No Clubbing, No Cyanosis and No Edema
Skin: Warm
Neuro: Awake, Alert and Oriented
Psych: Calm
Data Reviewed
-
Labs: Labs Reviewed by me, Discussed with Physician and Discussed with Patient
[2024-07-05] MEDS: ROCEPHIN 1000 MG IV (12:52)
[2024-07-05] MEDS: STERILE WATER FOR INJECTION 10 ML IV (12:53)
[2024-07-05 15:25] VITALS: BP 151/66
--- NOTE | 2024-07-05 15:25 | CM ---
Patient seen bedside.
Denies home care needs.
IM completed.
Plan: home no needs.
[2024-07-05] MEDS: HEPARIN SC (16:36)
[2024-07-05] MEDS: LIPITOR 20 MG PO (16:49)
[2024-07-05 20:00] VITALS: BP 162/77
[2024-07-05] MEDS: XALATAN OPHTHALMIC SOLUTION 1 DROP RIGHT EYE (21:32)
[2024-07-05] MEDS: TYLENOL 650 MG PO (21:32)
[2024-07-05 23:16] VITALS: BP 151/59
[2024-07-06 07:25] VITALS: BP 155/65
[2024-07-06 07:47] LABS: Hematocrit 32.7 % (37.0-47.0); Hemoglobin 10.5 g/dL (12.0-16.0); Mean Corp Hgb Conc. 32.1 g/dL (33.0-37.0); Mean Corpuscular Hgb 27.8 pg (27.0-31.0); Mean Corpuscular Volume 86.5 fL (81.0-99.0); Mean Platelet Volume 10.5 fL (7.4-10.4); Platelet Count 262 10^3/uL (130-400); Red Blood Cell Count 3.78 10^6/uL (4.20-5.40); Red Cell Dist. Width 15.2 % (11.5-14.5); White Blood Cell Count 7.9 10^3/uL (4.8-10.8)
[2024-07-06] MEDS: HEPARIN 5000 UNITS SC (07:49)
--- NOTE | 2024-07-06 08:32 | W.PN.UPDATE ---
Update Note
Progress Note Update
I saw and evaluated the patient. I reviewed the resident�s note and agree with findings and plan as documented in the resident�s note.
No new complaints.
Gen: remains NAD, Awake and alert
Eyes: remains EOMI, PERRLA, no scleral icterus.
Neck: supple.
CV: RRR, +S1/S2, no m/r/g.
Resp: CTAB, no rales, wheezes, or rhonchi.
Abd: continues to remain +BS, soft, NT, ND
Skin: No rashes.
Neuro: CN 2-12 intact, non-focal.
Psych: Normal mood and affect.
07/02/24 10:25 Blood/Venous Blood Culture - Final
Proteus mirabilis
Streptococcus species
07/02/24 10:25 Blood/Venous Gram Stain - Final
07/02/24 10:25 Blood/Venous Blood Culture - Preliminary
No Growth in 72 hours- Final report to follow
07/02/24 10:25 Urine Urine Culture - Final
Proteus mirabilis
CT A/P: Moderate right hydronephrosis secondary to a large right UPJ stone. 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
NATALIE and sepsis due to acute urinary tract infection due to acute R ureterolithiasis:
-NATALIE due to sepsis and acute R-sided hydronephrosis
-s/p OR 07/02/24 for cystoscopy, bilateral retrograde pyelogram, R ureteral stent placement
-Cr improving, afebrile, leukocytosis has resolved
-cont IV Rocephin until d/c at which time pt will transition to amoxicillin 500mg PO TID through 07/17/2024
-follow BCxs to completion, Cx data above
-s/p IVFs
-cont pain control
-renal following
-Cr improving, now down to 1.3
Other problems:
Essential HTN: resume Norvasc
HLD: cont statin
Limited DNR/heparin
Medically cleared for discharge. Case management aware.
Total time spent on d/c = 31 min. This included today's physical exam, progress note, review of laboratory and diagnostic data, preparation of discharge documents and prescriptions, and discussions about the pt's hospital course and discharge plan
with the patient and other director of medical staff services involved in the patient's care.
[2024-07-06 08:36] LABS: Blood Urea Nitrogen 26 mg/dl (7-17); Calcium 8.6 mg/dl (8.4-10.2); Carbon Dioxide 26 mmol/L (22-30); Chloride 107 mmol/L (98-107); Estimated Creatinine Clearance 35 ml/min; Glucose 93 mg/dl (70-99); Potassium 3.8 mmol/L (3.5-5.1); Sodium 142 mmol/L (135-145); eGFR 42.09
--- NOTE | 2024-07-06 09:28 | W.PN.HOSP.TC ---
Today's Communication/Plan
-
Patient to be discharged today following her IV antibiotic treatment.
Assessment / Plan
Assessment / Plan
Assessment:
79-year-old female with a past medical history of hypertension and hyperlipidemia presented to emergency department with a history of persistent chills/rigors that have been getting worse for the past month or so. In the ED patient was feeling
chills and costovertebral pain mainly on the right side. Patient was found to have moderate right sided hydronephrosis secondary to a large right UPJ stone on CT scan. Patient started on IV antibiotics and fluids in the ED and admitted to [facility]
for further management. Patient underwent cystoscopy, bilateral retrograde pyelogram with right ureteral stent placement. Patient will have outpatient follow up after discharge for ureteroscopy/laser lithotripsy. No intervention was done for the
left kidney. Patient has continued to recover well and is now feeling much better with no reported fever or chills. Has been ambulating and tolerating her diet. Patient medically cleared for discharge as her creatinine level has much improved.
Will switch to oral antibiotics on discharge.
CT A/P (07/02/2024):
Moderate right hydronephrosis secondary to a large right UPJ stone.
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
1 mm nonobstructing right renal stone. Stable
Probable noncalcified gallstones. Stable.
Nonobstructing left renal stones. Stable
Small right and tiny left pleural effusions. Both new.
Too small to characterize hypodense hepatic lesions likely small cysts or hemangiomas. Stable
Tiny pericardial effusion versus pericardial thickening. Stable
Plan:
# Sepsis due to acute urinary tract infection due to acute right ureterolithiasis
-Blood and urine cultures taken in the ED, will follow and change abx as needed
-Urine culture positive for Proteus and sensitive to cephalosporins
-Blood culture positive for Proteus and anaerobic gram-positive cocci in chains
-Urology consulted, input appreciated
-Pain control as needed
-Patient underwent cystoscopy, bilateral retrograde pyelogram with right ureteral stent placement
-Cystitis was apparent on cystoscopy but no purulent urine was found come from above the right ureteral stone
-As per pharmacy, it is okay to continue ceftriaxone if patient is improving appropriately. Recommend changing to ampicillin/sulbactam if she was not improving due to increased activity against Enterococcus and Proteus
-Patient's Jade removed yesterday, has been urinating well without it
-Will continue on IV ceftriaxone, switch to p.o. antibiotics on discharge
-ID consulted for further evaluation of patient's antibiotics, input appreciated
-Patient will transition to amoxicillin 500 mg p.o. 3 times daily through 07/17/2024
# NATALIE due to acute right ureterolithiasis
-Probably secondary to sepsis/acute right-sided hydronephrosis
-Urology consulted, input appreciated
-Patient underwent cystoscopy, bilateral retrograde pyelogram with right ureteral stent placement
-Plans for outpatient follow up for ureteroscopy/laser lithotripsy
-Left kidney found to be atrophic and no intervention was recommended. Future nephrectomy recommended if any problems arise
-Patient advanced to regular diet after procedure as per urology
-Nephrology consulted, input appreciated
-IV fluids ended today
-Continue monitoring BMP
-Creatinine is much improved to 1.3 now
# Hypertension
-Resumed amlodipine
# Hyperlipidemia
-Continue atorvastatin
#Osteoporosis
-holding risedronate due to elevated creatinine levels
DVT prophylaxis: Subcutaneous heparin
Code Status: Limited DNR (spoke with patient and , no ventilator but want CPR and defibrillation)
Anticipated Discharge: Today
Subjective/Interval History
-
Date of Service: July 06, 2024
Patient has been feeling well, reports no acute concerns. Looking forward to going home today
Objective Data
-
Labs:
Laboratory Results
07/06/24
07:19
WBC 7.9
Hgb 10.5 L
Hct 32.7 L
Plt Count 262
Sodium 142
Potassium 3.8
Chloride 107
Carbon Dioxide 26
BUN 26 H
Creatinine 1.3 H
Glucose 93
Calcium 8.6
Vital Signs:
Vital Signs
Temp Pulse Resp BP Pulse Ox
97.8 F 57 18 155/65 96
07/06/24 07:25 07/06/24 07:25 07/06/24 07:25 07/06/24 07:25 07/06/24 07:25
I&O
07/05/24 07/06/24 07/07/24
06:59 06:59 06:59
Intake Total 2760 / 2760 120 / 120
Balance 2760 / 2760 120 / 120
Review of Systems
-
History Source: Patient
Constitutional: Denies Fever, Fatigue, Chills or Weakness
EENT: Reports No Symptoms Reported
Respiratory: Denies Cough or Trouble Breathing
Cardiac: Denies Chest Pain or Palpitations
Abdomen/GI: Denies Abdominal Pain, Nausea, Vomiting or Diarrhea
Genitourinary: Denies Dysuria, Flank Pain or Difficulty Voiding
Musculoskeletal: Reports No Symptoms
Skin: Reports No Symptoms
Neuro: Reports No Symptoms
Physical Exam
-
General: Well Developed, Well Nourished, No Apparent Distress, Comfortable and Conversant
HEENT: Normocephalic and Atraumatic
Respiratory: Clear to Auscultation and Non Labored Respirations
Cardiac: Regular Rhythm and S1/S2
GI: Soft, Nontender and Nondistended
Genito-urinary: No Costovertebral Tender
Musculoskeletal: No Clubbing, No Cyanosis and No Edema
Skin: Warm
Neuro: Awake, Alert and Oriented
Psych: Calm
Data Reviewed
-
Labs: Labs Reviewed by me, Discussed with Physician and Discussed with Patient
--- NOTE | 2024-07-06 09:38 | W.PN.URO.CBU ---
Today's Communication / Plan
-
Continue antibiotics
Outpatient follow up for stone removal - outpatient appointment scheduled
Stable for discharge from standpoint
Assessment / Plan
-
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
s/p OR 07/02 for cystoscopy, bilateral retrograde pyelogram, R ureteral stent placement
R stent in good position
Unable to pass contrast, wire, or stent to left kidney
UTI
- Continue antibiotics for proteus bacteremia/UTI - course per ID (amoxicillin through 07/17)
NATALIE
- Significantly improved s/p stent placement
R ureteral stone
- s/p stent placement
- Outpatient follow up after discharge for ureteroscopy/laser lithotripsy
L UPJ obstruction
- Atrophic left kidney appears to have very little functional parenchyma and ureter is completely obstructed/obliterated with no contrast passage - suspect chronic stricture related to prior proximal stone and surgery in 2020
- Likely little benefit to percutaneous nephrostomy tube placement, as it would not substantially improve her overall renal function
- No intervention recommended for L kidney. Should this become problematic in the future nephrectomy could be considered
Diagnosis
-
Date of Service: July 06, 2024
-
Patient Diagnosis:
ARF
R ureteral stone
L UPJ obstruction/stricture
Bacteremia
s/p R stent placement 07/02
Post Op Day:
Subjective
-
Feeling well
tolerating stent
Objective
-
Vital Signs
Temp Pulse Resp BP Pulse Ox
97.8 F 57 18 155/65 96
07/06/24 07:25 07/06/24 07:25 07/06/24 07:25 07/06/24 07:25 07/06/24 07:25
Intake and Output
07/05/24 07/06/24 07/07/24
06:59 06:59 06:59
Intake Total 2760 / 2760 120 / 120
Balance 2760 / 2760 120 / 120
Intake:
Oral fluids 960 / 960 120 / 120
IV fluids (Total) 1800 / 1800
Other:
Number of approximated MODERATE 3 1
amounts of urine
Number of approximated LARGE 1
amounts of urine
Laboratory Results
07/06/24 07:19
07/06/24 07:19
Physical Exam
-
General - well developed, well nourished, no acute distress
Chest - clear bilaterally
Abdomen - soft, non-tender
[2024-07-06] MEDS: NORVASC 10 MG PO (10:01)
[2024-07-06] MEDS: STERILE WATER FOR INJECTION 10 ML IV (11:45)
[2024-07-06] MEDS: ROCEPHIN 1000 MG IV (11:45)
--- NOTE | 2024-07-06 12:12 | CM ---
Chart reviewed; met with pt/ at bedside
Poss d/c today
Has transport home
Reviewed IMM
Plan - anticipate home no needs when medically stable
--- NOTE | 2024-07-06 13:03 | W.DCSUMMARY ---
Discharge Summary
Discharge Data
Date of Admission: 07/02/24
Date of Discharge: 07/06/24
-
Pending Results: No
Hospital Course
Discharging Physician : Dr. Mayra Adair, Dr. Charles Montenegro
�
Disposition�:�Home
�
Primary�care�physician�: Dr. Usha Casey
�
Principal�Discharge�Diagnosis�:�NATALIE and sepsis due to acute urinary tract infection due to acute right ureterolithiasis
�
Chronic�Discharge�Diagnosis:�
Essential hypertension
Hyperlipidemia
�
Hospital�Course�:��
79-year-old female with a past medical history of hypertension and hyperlipidemia presented to emergency department on 07/02/2024 with a history of persistent chills/rigors that had been getting worse for the past month or so. In the ED patient was
feeling chills and costovertebral pain mainly on the right side. Patient was found to have moderate right sided hydronephrosis secondary to a large right UPJ stone on CT scan along with an atrophic left kidney from chronic obstruction. Patient was
found to have severe NATALIE with creatinine of 6.1 on presentation. Patient was started on IV antibiotics and fluids in the ED and admitted to [facility] for further management. Urology and nephrology were consulted at this time. Patient underwent
cystoscopy, bilateral retrograde pyelogram with right ureteral stent placement, with no intervention done for the left kidney. She also had urinary and blood cultures taken at this time. Blood cultures grew Proteus and Streptococcus species, while
urine cultures grew Proteus only. Patient continued to recover well after placement of stent and antibiotic treatment with ceftriaxone. Her creatinine levels continue to trend downwards. Patient was taken off of fluids as she continues to
progress. Patient medically cleared for discharge as her creatinine level has much improved and her symptoms have resolved. Patient will have outpatient follow up after discharge for ureteroscopy/laser lithotripsy. ID was consulted for which
antibiotics she should take in the outpatient setting. Patient will be switched to oral amoxicillin 500 mg 3 times a day until 07/17/2024. Patient will need to follow-up with urology, nephrology and her PCP once discharged. Already has an
appointment scheduled with urology. Patient to continue amlodipine for her blood pressure and statin therapy for hyperlipidemia.
�
Important�imaging�findings�:��
CT A/P (07/02/2024):
Moderate right hydronephrosis secondary to a large right UPJ stone.
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
1 mm nonobstructing right renal stone. Stable
Probable noncalcified gallstones. Stable.
Nonobstructing left renal stones. Stable
Small right and tiny left pleural effusions. Both new.
Too small to characterize hypodense hepatic lesions likely small cysts or hemangiomas. Stable
Tiny pericardial effusion versus pericardial thickening. Stable
�
Procedure�findings�:�
Cystoscopy, bilateral retrograde pyelogram, right ureteral stent placement (07/02/2024):
DRAINS PLACED: 6-Cymraes x 24 cm right double-J ureteral stent, 18-Cymraes Jade catheter.
INTRAOPERATIVE FINDINGS:
1. Cystourethroscopy showed diffuse cystitis within the bladder
consistent with suspected urinary tract infection.
2. Right retrograde pyelogram showed obstruction at the level of
the UPJ due to the known 18 mm stone. A guidewire and ureteral
stent were placed past the stone into the dilated renal pelvis.
3. Left retrograde pyelogram showed complete obliteration and
obstruction of the ureter and the left UPJ. There was no contrast
able to be passed proximal to the UPJ into the renal pelvis. This
is consistent with high-grade obstruction and a likely cause of the
patient's severe left renal atrophy. No guidewire or stent was able
to be passed through this high-grade obstruction and into the left
kidney.
�
RF Retrograde Pyelogram (07/02/2024):
Films show opacification of the proximal right and mid left collecting systems.
There is placement of a right double-J stent.
There are filling defects in the left mid collecting system either air bubbles or stones.
�
Discharge Plan
-
Patient Disposition: Home (Routine Discharge)
Discharge Diagnosis/Procedures: NATALIE and sepsis due to acute urinary tract infection due to acute R ureterolithiasis
Essential hypertension
Hyperlipidemia
Condition: Good
Diet: Low Cholesterol
Activity: No restrictions
Driving Restrictions: As prior to admission
Bathing Restrictions: None
Specialty Instructions: Weigh Daily- Call MD for wt gain/loss 3 lbs overnight/5 lbs in 1 week
Referrals:
Mo Bowens DO [Active] - in two to three weeks
Usha Casey DO [Family Provider] - in less than 1 week
Luke Tidwell MD [Active] - in two to three weeks
Additional Discharge Medication Instructions: Follow-up with PCP within 1 week
Follow-up with nephrology regarding recent NATALIE
Follow-up with urology regarding further management of urinary tract stones
Take 1 tablet amoxicillin 500 mg 3 times a day until 07/17/2024
Prescriptions:
New
amoxicillin 500 mg capsule
500 mg PO TID 11 Days Qty: 33 0RF
Continued
latanoprost 1 DROP drops
1 drp RIGHT EYE HS
atorvastatin 20 MG tablet
20 mg PO QPM
amlodipine 10 MG tablet
10 mg PO DAILY
Held
risedronate 150 mg Tablet
150 mg PO QMONTH
Hold Instructions: Hold until seen by PCP
Discontinued
ibuprofen [Advil] 200 mg Tablet
400 mg PO Q8HPRN PRN (Reason: MILD PAIN)
Discharge Orders:
Discharge Patient (As Directed); Ordered 07/06/24
Ordered By: Charles Montenegro
Discharge Date and Time
Print Language: UKRAINIAN
--- NOTE | 2024-07-06 14:08 | W.PN.NEPH.PH ---
Today's Communication / Plan
-
Okay for discharge from renal standpoint and follow-up outpatient
Assessment/Plan
-
79-year-old female with a past medical history of hypertension and hyperlipidemia presents to the emergency department on 07/02/2024 due to persistent chills/rigors and nausea that have been going on for more than a month. She was found to have an
acute right renal obstruction secondary to renal calculi.
She has a atrophic left kidney from chronic obstruction.
Renal consult for acute kidney injury with a creatinine of 6 the baseline normal renal function.
She is status post right ureteral stent placement
Impression.
Acute kidney injury with a creatinine of 6 secondary to obstructive uropathy.
Last creatinine of record 2020 0.7
Nephrolithiasis
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
Hypertension.
Plan.
cap IV fluids
Follow BMP
Creatinine stable okay for discharge from renal standpoint follow-up with us in about 3 months and after she gets stone extracted
-
-
Date of Service: July 06, 2024
CC / HPI / ROS
-
Chief Complaint:
NATALIE
History of Present Illness:
NATALIE/creatinine down to 1.7�1.3
Voiding without issues
Blood pressure stable
Nonoliguric
Review of Systems:
No chest pain or shortness of breath
Labs
-
Labs:
WBC 7.9 10^3/uL (4.8-10.8) 07/06/24 07:19
RBC 3.78 10^6/uL (4.20-5.40) L 07/06/24 07:19
Hgb 10.5 g/dL (12.0-16.0) L 07/06/24 07:19
Hct 32.7 % (37.0-47.0) L 07/06/24 07:19
Plt Count 262 10^3/uL (130-400) 07/06/24 07:19
Sodium 142 mmol/L (135-145) 07/06/24 07:19
Potassium 3.8 mmol/L (3.5-5.1) 07/06/24 07:19
Chloride 107 mmol/L (98-107) 07/06/24 07:19
Carbon Dioxide 26 mmol/L (22-30) 07/06/24 07:19
BUN 26 mg/dl (7-17) H 07/06/24 07:19
Creatinine 1.3 mg/dL (0.6-1.0) H 07/06/24 07:19
eGFR 42.09 07/06/24 07:19
Glucose 93 mg/dl (70-99) 07/06/24 07:19
Calcium 8.6 mg/dl (8.4-10.2) 07/06/24 07:19
Albumin 3.6 g/dl (3.5-5.0) 07/02/24 10:25
Physical Exam
-
Vital Signs:
Vital Signs
Temp Pulse Resp BP Pulse Ox
97.8 F 73 18 150/72 96
07/06/24 07:25 07/06/24 10:01 07/06/24 07:25 07/06/24 10:01 07/06/24 07:25
Cardiovascular:: Regular rate and rhythm
Respiratory:: Bilateral: Coarse
Lung Excursion:: Normal
Abdomen:: Nontender and Soft
Bowel Sounds:: Normal
Extremity Edema:: None: Bilateral:
--- NOTE | 2024-07-06 14:36 | W.PN.ID1 ---
Date of Service
Date of Service: July 06, 2024
Today's Communication
Continue antibiotics. Transition to oral antibiotics at discharge.
Assessment / Plan
Proteus bacteremia
Complicated urinary tract infection
Obstructive uropathy
Leukocytosis
NATALIE; improving
HTN
Dyslipidemia
Recommendations:
Patient for discharge; transition to amoxicillin 500 mg p.o. 3 times daily, to continue through 07/17/2024.
Patient will need close follow-up in the outpatient setting by both Urology (for definitive stone management) and Nephrology (regarding recent NATALIE)
Patient counseled to follow closely after discharge for any worsening fevers or chills which could indicate a return of infection.
����������������������������������������������������������
Chief Complaint
-: Bacteremia and Other (Complicated urinary tract infection; obstructive uropathy)
Subjective / Review of Systems
Review of Systems: No Fever, No Chills and No Dysuria
Vital Signs / Physical Exam
Vital Signs
Vital Signs
Temp Pulse Resp BP Pulse Ox
97.8 F 73 18 150/72 96
07/06/24 07:25 07/06/24 10:01 07/06/24 07:25 07/06/24 10:01 07/06/24 07:25
Physical Exam
Constitutional: No Acute Distress, Comfortable and Non-toxic
Eyes: No Conjunctival Hemorrhage and Sclera Anicteric
Cardiovascular: S1/S2; Negative S3/S4
Pulmonary: Non Labored
Gastrointestinal: Soft and Non Tender
Genito-Urinary: Negative CVA Tenderness
Neurological: Awake and Alert
Psychological: Calm
Objective Data
Lab Data
Lab Results
07/06/24 07:19
07/06/24 07:19
Estimated Creat Clear 35 ml/min 07/06/24 07:19
Lactic Acid Cancelled 07/02/24 14:15
Total Bilirubin 1.0 mg/dl (0.2-1.3) 07/02/24 10:25
AST 62 U/L (14-36) H 07/02/24 10:25
ALT 67 U/L (0-35) H 07/02/24 10:25
Alkaline Phosphatase 136 U/L (38-126) H 07/02/24 10:25
Most recent labs reviewed.
Micro Results:
07/02/24 10:25 Blood Culture - Preliminary
Blood/Venous No Growth in 4 days- Final report to follow
07/02/24 10:25 Blood Culture - Final
Blood/Venous Proteus mirabilis
Streptococcus species
Gram Stain - Final
07/02/24 10:25 Urine Culture - Final
Urine Proteus mirabilis
Blood Culture Preliminary 07/02/24
Proteus mirabilis and
Streptococcus species
Organism 1 Proteus mirabilis
1. Proteus mirabilis
M.I.C. RX
--------- ---
Amoxicillin/Potas. Clavulanate <=8/4 S
Ampicillin <=8 S
Ampicillin/Sulbactam <=4/2 S
Aztreonam <=4 S
Cefazolin 4 I
Cefepime <=2 S
Ceftazidime <=1 S
Ceftriaxone <=1 S
Ertapenem <=0.5 S
Ciprofloxacin <=0.25 S
Gentamicin <=2 S
Meropenem <=1 S
Piperacillin/Tazobactam <=8 S
Tetracycline >8 R
Tobramycin <=2 S
Trimethoprim/Sulfamethoxazole <=2/38 S
Imaging:
07/02/2024 CT abdomen/pelvis: Moderate right hydronephrosis secondary to a large right UPJ stone. There is chronic left UPJ obstruction, with severe atrophy and severe hydronephrosis. Please see full dictation for additional detail.
CT Scan: Image Reviewed and Report Reviewed
[2024-07-06 15:22] VITALS: BP 149/70
== END 2024-07-06 16:32 | disposition home or self-care (01) | DRG 854 ==
LOC: 2 SOUTH 15:48
PROVIDERS: Physician Assistant Medical; Specialist; ADMITTING PHYSICIAN Internal Medicine; EMERGENCY PHYSICIAN Emergency Medicine; OTHER PHYSICIAN Internal Medicine Infectious Disease; OTHER PHYSICIAN Internal Medicine Nephrology; OTHER PHYSICIAN Urology
PROC: BT141ZZ Fluoroscopy of Kidneys, Ureters and Bladder using Low Osmolar Contrast (ICD-10-PCS; 2024-07-02)
PROC: 0T768DZ Dilation of Right Ureter with Intraluminal Device, Via Natural or Artificial Opening Endoscopic (ICD-10-PCS; 2024-07-02)
DX: A41.59 Other Gram-negative sepsis (principal); N13.6 Pyonephrosis; N17.9 Acute kidney failure, unspecified; Z66 Do not resuscitate; I10 Essential (primary) hypertension; E78.00 Pure hypercholesterolemia, unspecified; M19.90 Unspecified osteoarthritis, unspecified site; K80.20 Calculus of gallbladder without cholecystitis without obstruction; N26.1 Atrophy of kidney (terminal); Z79.899 Other long term (current) drug therapy
CPT/HCPCS: 74176; 74420; 76000; 80048; 80053; 81003; 81015; 83605; 83690; 83735; 84443; 85025; 85027; 87040; 87086; 87088; 87149; 87186; 87205; 96361; 96374; 99291; A4300; C2617

== ENCOUNTER → 2024-07-19 09:00 | Outpatient (REF) | payer MEDICARE, OTHER, SELFPAY | LOC: SDSPAT 09:00 | PROVIDERS: ATTENDING PHYSICIAN Urology; FAMILY PHYSICIAN Family Medicine | DX: N20.0 Calculus of kidney (principal) | CPT/HCPCS: 93005 ==

== ENCOUNTER 2024-07-24 06:09 | Day surgery (SDC) | payer MEDICARE, OTHER, SELFPAY ==
[2024-07-19 12:41] VITALS: BMI 29.8
[2024-07-24] VITALS (9 sets, daily range): BP systolic 109–133; BP diastolic 53–76; BMI 29.8
[2024-07-24] MEDS: NORMOSOL-R/PLASMALYTE-A 1000 IV (07:13)
== END 2024-07-24 11:06 | disposition home or self-care (01) ==
LOC: SDS 06:09
PROVIDERS: ATTENDING PHYSICIAN Urology; FAMILY PHYSICIAN Family Medicine
DX: N20.1 Calculus of ureter (principal)
CPT/HCPCS: 52356; 74018; 76000; 82365; A4300; C1758; C1769; C1894

== ENCOUNTER → 2024-08-07 14:20 | Outpatient (REF) | payer MEDICARE, OTHER, SELFPAY | LOC: HWRAD 14:20 | PROVIDERS: ATTENDING PHYSICIAN Urology; FAMILY PHYSICIAN Family Medicine | DX: N20.0 Calculus of kidney (principal) | CPT/HCPCS: 76775 ==

== ENCOUNTER 2024-08-10 10:33 | Inpatient (IN) | payer MEDICARE, OTHER, SELFPAY ==
[2024-08-10] VITALS (9 sets, daily range): BP systolic 126–157; BP diastolic 68–85; BMI 30.6; BMI 29.2
--- NOTE | 2024-08-10 05:39 | ED.GENMED ---
History of Present Illness
<Kendall Jett Jr., PA-C - Last Filed: 08/11/24 18:47>
General
Chief Complaint: Cold/Flu/URI Symptoms
Source: patient
Exam Limitations: none
Time Seen by Provider: 08/10/24 05:23
Nursing documentation reviewed up to this point in time: agreed with
History of Present Illness
History of Present Illness:
79-year-old female presenting to the emergency department today with concerns of upper respiratory symptoms worsening over the past few days. Initially thought it was allergies a few days ago but noticed chills shortness of breath and junky cough
this morning. Denies specific chest pain.
Past History
<Kendall Jett Jr., PA-C - Last Filed: 08/11/24 18:47>
Past History
ED Past Medical History: HTN and Hypercholesterolemia
ED Past Surgical History: None
Social History
Tobacco: Non-smoker
Alcohol: Daily (wine 1-2 glasses)
Drug: None
Personal:
Living: with family
Review of Systems
<Kendall Jett Jr., PA-C - Last Filed: 08/11/24 18:47>
Review of Systems
Allergies reviewed?: Yes
All Other Systems: ROS reviewed and negative except as documented in HPI and ROS
Phy Exam
<Kendall Jett Jr., PA-C - Last Filed: 08/11/24 18:47>
Physical Exam
Physical Exam:
GENERAL: Alert , in no apparent distress
EYE: pupils equal and reactive
NECK: Supple, no significant adenopathy.
ENT: o/p clr, mmm.
CARDIAC: Regular rate and rhythm .
LUNGS: Scattered wheeze and rhonchi diffusely
ABDOMEN: Soft, without focal tenderness, no r/g, no cvat
NEUROLOGICAL: Alert and oriented, no focal neuro deficits
SKIN: Warm and dry, skin intact.
MUSCULOSKELETAL: No edema, well perfused.
PSYCH: Normal and appropriate interaction.
Course
<Kendall Jett Jr., PA-C - Last Filed: 08/11/24 18:47>
Orders/Labs/Results
Orders:
Orders
08/10/24 04:54
COVID-19 Antigen Urgent
Source: Nasal Swab
Influenza A+B Rapid Molecular Urgent
GOPI Source: Nasal Swab
Specimen Description:
08/10/24 05:24
Chest [CR Chest - 2 Views ] Urgent
Comment:
Reason For Exam: cough fever
08/10/24 05:32
Ipratropium/Albuterol Sulfate [Duoneb] 3 ml INH R NOW ONE
08/10/24 Breakfast
Cholesterol Lowering
At Your Request: Full Participation
Cholesterol Lowering: Sodium, 2 Gram
08/10/24 06:17
Acetaminophen [Tylenol] 1,000 mg PO NOW STA
08/10/24 06:57
Complete Blood Count/With Diff Urgent
Comprehensive Metabolic Panel Urgent
Lactic Acid Urgent
08/10/24 07:44
Azithromycin [Zithromax] 500 mg PO NOW STA
CefTRIAXone [Rocephin] 2,000 mg IV NOW STA
08/10/24 08:39
Admit/Transfer Patient As Directed
Co-Sign Provider:
Level of Care: Inpatient admission
Assign to:: Medical/Surgical
Physician / Group: Hospitalist
Diagnosis: Pneumonia
Reason for Hospitalization: Community acquired pneumonia
Expected length of stay greater than two midnights?: Yes
ELOS- Estimated Length of Stay in days: 3
I certify the patient meets the requirements for IP care: Yes
PRN Pain Medication Management As Directed
May give lesser potent ordered pain med per pt: Yes
preference::
Protocol:: Medication orders for pain may be administered in a
manner that supports deferring to patient preference
when the pt is:
- Requesting an ordered lesser potent pain medication.
Least to most potent pain medications are defined
as: acetaminophen < NSAID < tramadol < opioids
(morphine, oxycodone, hydromorphone).
- Requesting a lesser dose of the same medication IF
ORDERED.
- Requesting a less intrusive route of administration
if both routes are prescribed by the provider (PO <
IV).
08/10/24 08:42
Code Status As Directed
Resuscitation Status: Full Code
08/10/24 13:10
Amlodipine [Norvasc] 10 mg PO DAILY
Aspirin Low Dose EC [Aspir Low (Enteric Coated)] 81 mg PO MOWEFR
Clobetasol Propionate [Clobetasol Propionate 0.05% Ointment] 1 applic TOPICAL DAILYPRN PRN
Loratadine [Claritin] 10 mg PO DAILYPRN PRN
fluticasone propionate 1 spray NASAL BIDPRN PRN
08/10/24 13:10
Respiratory Culture/Gram Stain Urgent
GOPI Source: Sputum
Specimen Description:
Date Specimen was Collected: 08/10/24
Time Specimen was Collected: 13:30
Activity As Directed
Activity Level: Out of Bed-Early Mobility
Intake/ Output As Directed
Frequency: Per unit guidelines
Intake/ Output As Directed
Frequency: Per unit guidelines
Vital Signs As Directed
Frequency: Per unit guidelines
Weight As Directed
Frequency: Once
Comment: on admission
DX Deep Vein Thrombosis Video Routine
08/10/24 18:00
Atorvastatin [Lipitor] 20 mg PO QPM
Enoxaparin Sodium [Lovenox] 40 mg SC QPM
08/10/24 22:00
Latanoprost [Xalatan Ophthalmic Solution] 1 drop RIGHT EYE HS
08/11/24 05:36
Basic Metabolic Panel IN AM
Complete Blood Count/No Diff IN AM
Abnormal Lab Results
08/10/24
06:57
Hct 36.0 L %
(37.0-47.0)
RDW 16.4 H %
(11.5-14.5)
Plt Count 129 L 10^3/uL
(130-400)
MPV 10.7 H fL
(7.4-10.4)
Lymphocytes % 17.6 L %
(20.5-51.1)
Chloride 108 H mmol/L
(98-107)
Glucose 104 H mg/dl
(70-99)
08/10/24 06:57
08/10/24 06:57
Vital Signs
Initial and Last Documented VS:
Initial Vital Signs
Temp Pulse Resp BP Pulse Ox
100.1 F 114 20 149/84 90
08/10/24 04:45 08/10/24 04:45 08/10/24 04:45 08/10/24 04:45 08/10/24 04:45
Last Documented Vital Signs
Temp Pulse Resp BP Pulse Ox
98.8 F 102 16 127/69 94
08/11/24 15:21 08/11/24 15:21 08/11/24 15:21 08/11/24 15:21 08/11/24 15:21
<Damian Flynn PA-C - Last Filed: 08/10/24 09:52>
Orders/Labs/Results
Orders:
Orders
08/10/24 04:54
COVID-19 Antigen Urgent
Source: Nasal Swab
Influenza A+B Rapid Molecular Urgent
GOPI Source: Nasal Swab
Specimen Description:
08/10/24 05:24
Chest [CR Chest - 2 Views ] Urgent
Comment:
Reason For Exam: cough fever
08/10/24 05:32
Ipratropium/Albuterol Sulfate [Duoneb] 3 ml INH R NOW ONE
08/10/24 Breakfast
Cholesterol Lowering
At Your Request: Full Participation
Cholesterol Lowering: Sodium, 2 Gram
08/10/24 06:17
Acetaminophen [Tylenol] 1,000 mg PO NOW STA
08/10/24 06:57
Complete Blood Count/With Diff Urgent
Comprehensive Metabolic Panel Urgent
Lactic Acid Urgent
08/10/24 07:44
Azithromycin [Zithromax] 500 mg PO NOW STA
CefTRIAXone [Rocephin] 2,000 mg IV NOW STA
08/10/24 08:39
Admit/Transfer Patient As Directed
Co-Sign Provider:
Level of Care: Inpatient admission
Assign to:: Medical/Surgical
Physician / Group: Hospitalist
Diagnosis: Pneumonia
Reason for Hospitalization: Community acquired pneumonia
Expected length of stay greater than two midnights?: Yes
ELOS- Estimated Length of Stay in days: 3
I certify the patient meets the requirements for IP care: Yes
PRN Pain Medication Management As Directed
May give lesser potent ordered pain med per pt: Yes
preference::
Protocol:: Medication orders for pain may be administered in a
manner that supports deferring to patient preference
when the pt is:
- Requesting an ordered lesser potent pain medication.
Least to most potent pain medications are defined
as: acetaminophen < NSAID < tramadol < opioids
(morphine, oxycodone, hydromorphone).
- Requesting a lesser dose of the same medication IF
ORDERED.
- Requesting a less intrusive route of administration
if both routes are prescribed by the provider (PO <
IV).
08/10/24 08:42
Code Status As Directed
Resuscitation Status: Full Code
08/10/24 13:10
Amlodipine [Norvasc] 10 mg PO DAILY
Aspirin Low Dose EC [Aspir Low (Enteric Coated)] 81 mg PO MOWEFR
Clobetasol Propionate [Clobetasol Propionate 0.05% Ointment] 1 applic TOPICAL DAILYPRN PRN
Loratadine [Claritin] 10 mg PO DAILYPRN PRN
fluticasone propionate 1 spray NASAL BIDPRN PRN
08/10/24 13:10
Respiratory Culture/Gram Stain Urgent
GOPI Source: Sputum
Specimen Description:
Date Specimen was Collected: 08/10/24
Time Specimen was Collected: 13:30
Activity As Directed
Activity Level: Out of Bed-Early Mobility
Intake/ Output As Directed
Frequency: Per unit guidelines
Intake/ Output As Directed
Frequency: Per unit guidelines
Vital Signs As Directed
Frequency: Per unit guidelines
Weight As Directed
Frequency: Once
Comment: on admission
DX Deep Vein Thrombosis Video Routine
08/10/24 18:00
Atorvastatin [Lipitor] 20 mg PO QPM
Enoxaparin Sodium [Lovenox] 40 mg SC QPM
08/10/24 22:00
Latanoprost [Xalatan Ophthalmic Solution] 1 drop RIGHT EYE HS
08/11/24 05:36
Basic Metabolic Panel IN AM
Complete Blood Count/No Diff IN AM
Abnormal Lab Results
08/10/24
06:57
Hct 36.0 L %
(37.0-47.0)
RDW 16.4 H %
(11.5-14.5)
Plt Count 129 L 10^3/uL
(130-400)
MPV 10.7 H fL
(7.4-10.4)
Lymphocytes % 17.6 L %
(20.5-51.1)
Chloride 108 H mmol/L
(98-107)
Glucose 104 H mg/dl
(70-99)
08/10/24 06:57
08/10/24 06:57
Vital Signs
Initial and Last Documented VS:
Initial Vital Signs
Temp Pulse Resp BP Pulse Ox
100.1 F 114 20 149/84 90
08/10/24 04:45 08/10/24 04:45 08/10/24 04:45 08/10/24 04:45 08/10/24 04:45
Last Documented Vital Signs
Temp Pulse Resp BP Pulse Ox
98.8 F 102 16 127/69 94
08/11/24 15:21 08/11/24 15:21 08/11/24 15:21 08/11/24 15:21 08/11/24 15:21
<Kendall Jett Jr., PA-C - Last Filed: 08/11/24 18:47>
MDM/Problems Addressed
MDM/Problems Addressed:
79-year-old female presenting to the emergency department today with concerns of worsening cough over the past few days specifically worsening this morning. Upon arrival tachycardic low-grade temperature pulse ox in the low 90s. Patient somewhat
hypoxic on arrival now on oxygen with improvement. Case was transitioned to [facility] pending additional workup.
<Damian Flynn PA-C - Last Filed: 08/10/24 09:52>
*Radiology
Radiology exam reviewed: preliminary read by ED provider (Bilateral pneumonia)
*Critical Care Note
Total Time (30-74mins, 75-104mins- exclusive of procedures): Not Applicable
<Damian Flynn PA-C - Last Filed: 08/10/24 09:52>
Patient Management
Discussion with other providers: Hospitalist
Escalation/DeEscalation of care consider admission/obs:
Patient received in signout at 6:50 AM pending labs and chest x-ray with anticipation for admission. Patient's chest x-ray shows bilateral pneumonia. She has no leukocytosis, normal chemistries and a negative COVID/flu. Patient's chest x-ray does
show bilateral lower lobe pneumonia. She is currently on 3 L nasal cannula due to her hypoxia. Will treat for community-acquired pneumonia with Rocephin and Zithromax. Hospitalist team aware and accepts for continued evaluation and treatment.
ED Attending Note
<Kendall Jett Jr., PA-C - Last Filed: 08/11/24 18:47>
-
Portions of this chart may have been created with voice recognition software.� Occasional wrong word or��sound alike� substitutions may have occurred due to the inherent limitations of voice recognition software.
Discharge Plan
Departure
Patient Disposition: Admit
Date of Disposition: 08/10/24
Time of Disposition: 07:47
Presentation/result/management discussed w/ accepting MD/DO: Hospitalist
Discharge Problem:
Pneumonia, Hypoxia
Interventions
Interventions:
*Risk Screen - Suicide Last Done: 08/10/24 04:45
*General Assessment Last Done: 08/10/24 06:41
*Neglect/Abuse Screening Last Done: 08/10/24 04:45
*ED- Fall Risk Assessment Last Done: 08/10/24 04:45
*ED COVID-19 Vaccine History Last Done: 08/10/24 04:45
*Nursing Disposition Last Done: 08/10/24 12:39
ED- Pulmonary Assessment Last Done: 08/10/24 07:20
Discharge Date and Time
Discharge Date/Time: 08/10/24 12:57
[2024-08-10 05:54] LABS: COVID-19 Antigen Negative (Negative)
[2024-08-10] MEDS: DUONEB 3 ML INH (06:43)
[2024-08-10] MEDS: TYLENOL 1000 MG PO (06:43)
[2024-08-10 07:19] LABS: Lactic Acid 0.7 mmol/L (0.7-2.0)
[2024-08-10 07:23] LABS: ALT (SGPT) 23 U/L (0-35); AST (SGOT) 33 U/L (14-36); Albumin 4.4 g/dl (3.5-5.0); Alkaline Phosphatase 67 U/L (38-126); Blood Urea Nitrogen 14 mg/dl (7-17); Calcium 8.9 mg/dl (8.4-10.2); Carbon Dioxide 23 mmol/L (22-30); Chloride 108 mmol/L (98-107); Estimated Creatinine Clearance 49 ml/min; Glucose 104 mg/dl (70-99); Potassium 4.4 mmol/L (3.5-5.1); Sodium 141 mmol/L (135-145); Total Protein 7.2 g/dl (6.3-8.2); eGFR > 60.00
[2024-08-10 07:24] LABS: % Basophils 0.3 % (0-2); % Eosinophils 1.5 % (0-6); % Immature Granulocytes 0.3 % (0-0.5); % Lymphocytes 17.6 % (20.5-51.1); % Monocytes 7.2 % (1.7-9.3); % Neutrophils 73.1 % (42.2-75.2); Absolute Eosinophils 0.1 10^3/uL (0-0.7); Absolute Lymphocytes 1.3 10^3/uL (1.2-3.4); Absolute Monocytes 0.5 10^3/uL (0.1-0.6); Absolute Neutrophils 5.3 10^3/uL (1.4-6.5); Hemoglobin 12.1 g/dL (12.0-16.0); Mean Corp Hgb Conc. 33.6 g/dL (33.0-37.0); Mean Corpuscular Hgb 28.8 pg (27.0-31.0); Mean Corpuscular Volume 85.7 fL (81.0-99.0); Mean Platelet Volume 10.7 fL (7.4-10.4); Nucleated Red Blood Cells % 0 %; Platelet Count 129 10^3/uL (130-400); Red Cell Dist. Width 16.4 % (11.5-14.5); White Blood Cell Count 7.2 10^3/uL (4.8-10.8)
--- NOTE | 2024-08-10 07:25 | EDRN ---
this RN noticed that the pts Sp02 was 88%, this RN notified the provider Damian HOYT and placed the pt on 3L NC, Sp02 came up to 94%, will continue to monitor the pt closely
[2024-08-10] MEDS: ZITHROMAX 500 MG PO (08:42)
[2024-08-10] MEDS: ROCEPHIN 2000 MG IV (08:42)
--- NOTE | 2024-08-10 12:13 | EDRN ---
this RN called the receiving unit and notified them that paper report was tubed up
--- NOTE | 2024-08-10 12:59 | HPS.HSE ---
Addendum entered and electronically signed by Easton Martinez MD 08/11/24 11:07:
Was seen and examined at 1055am on 08/10
Acute hypoxemic respiratory failure secondary to pneumonia likely CAP for superimposed bacterial
PSI 78 and curb 65 of 1
Wean oxygen as tolerated
Continue Rocephin doxycycline
Follow-up on sputum culture
Urinary antigens Legionella/strep negative
Encourage Acapella and incentive spirometer use
PT OT
Hypertension
Continue amlodipine
Hyperlipidemia
Continue Lipitor
Solitary kidney
Renal function stable
Avoid nephrotoxins hypotension
Osteoporosis
Continue bisphosphonate
Original Note:
Family Physician
-
Family Physician: Usha Casey
Chief Complaint
-
Cough, shortness of breath
History of Present Illness
79-year-old female with history of hypertension, hypercholesterolemia, nonfunctioning left kidney, osteoporosis, who presents with nonproductive cough, chills, and shortness of breath. Symptoms started a few days ago with runny nose, watery eyes,
postnasal drip. Symptoms worsened over the past few days, including thick phlegm in her throat that was difficult to clear out, non-productive cough, chills, and shortness of breath following cough spells. She has no prior history of pneumonia.
Recent admission for NATALIE and sepsis due to complicated UTI with acute right ureterolithiasis.
She denies sick contacts, recent travels, fever, chest pain, palpitations, nausea, vomiting, abdominal pain, diarrhea, constipation, difficulty swallowing, urinary complaints, or any history of heart/lung conditions.
In the ED, she was noted to be febrile. by my own check at the time I examined her, she was febrile to 102.1F.
Medical History
Past Medical History
Past Medical History: Reports HTN, Hypercholesterolemia and Other (osteoporosis, solitary functioning kidney, )
Past Surgical History: Reports Gynocological (tubal ligation) and Other (kidney stone removal)
Social History
Tobacco: Non-smoker
Alcohol: Occasional (up to 3 glasses of wine a week)
Drug: None
Personal:
Living: With Family
Family History
Family History: Other (heart disease, glaucoma)
Allergies / Home Medications
Allergies reflects when Allergies were last updated in [facility].
Home Medications with original date entered in [facility]
Allergy/Medication List:
Allergies
Allergy/AdvReac Type Severity Reaction Status Date / Time
No Known Allergies Allergy Verified 08/10/24 04:44
Home Medications
amlodipine 10 mg tablet 10 mg PO DAILY Blood pressure 03/25/21
atorvastatin 20 mg tablet 20 mg PO QPM High cholesterol 03/25/21
latanoprost 0.005 % eye drops 1 drp RIGHT EYE HS Eye condition 03/25/21
risedronate 150 mg tablet 150 mg PO ONT BONE HEALTH 07/02/24
aspirin 81 mg tablet,delayed release 81 mg PO MOWEFR 07/19/24
cholecalciferol (vitamin D3) 50 mcg (2,000 unit) capsule (Vitamin D3) 50 mcg PO DAILY 07/19/24
clobetasol 0.05 % topical ointment 1 applic topical DAILYPRN PRN rash 07/19/24
fluticasone propionate 50 mcg/actuation nasal spray,suspension 1 spray intranasal BIDPRN PRN allergies 07/19/24
loratadine 10 mg tablet (Claritin) 10 mg PO DAILYPRN PRN allergies 07/19/24
Review of Systems
-
History Source: Patient
Constitutional: Reports Chills
Respiratory: Reports Cough and Trouble Breathing; Denies Hemoptysis
Cardiac: Denies Chest Pain
Abdomen/GI: Denies Abdominal Pain, Nausea, Vomiting, Diarrhea, Constipated, Bloody Stools or Black Stools
: Denies Dysuria, Frequency, Difficulty Voiding or Bleeding
Neurological: Denies Headache
Physical Exam
Vital Signs
Vital Signs
Temp Pulse Resp BP Pulse Ox
99.9 F 104 20 147/85 94
08/10/24 12:38 08/10/24 12:38 08/10/24 12:38 08/10/24 12:38 08/10/24 12:38
Physical Exam
General: Well Developed, Well Nourished, No Apparent Distress, Comfortable and Conversant
HEENT: NormoCephalic, Anicteric, Atraumatic and Other (Dry mucous membranes)
Respiratory: Rhonchi (mild scattered rhonchi), Crackles (mild, RLL), Non Labored Respirations and Decreased Breath Sounds; No Accessory Resp Muscle Use
Cardiac: S1/S2, Regular Rhythm and Tachycardia; No Murmur, Rub, Peripheral Edema or Calf Tenderness
GI: Soft, Non Tender, Non Distended and Other (No rebound or guarding)
Musculoskeletal: No Clubbing and No Cyanosis
Skin: Warm and Dry
Neuro: Awake, Alert, Oriented and Nonfocal/grossly intact
Psych: Calm
Laboratory Results
-
08/10/24 06:57
08/10/24 06:57
Laboratory Results
Lactic Acid 0.7 mmol/L (0.7-2.0) 08/10/24 06:57
Total Bilirubin 1.0 mg/dl (0.2-1.3) 08/10/24 06:57
AST 33 U/L (14-36) 08/10/24 06:57
ALT 23 U/L (0-35) 08/10/24 06:57
Alkaline Phosphatase 67 U/L (38-126) 08/10/24 06:57
Impression/Plan
-
IMPRESSION:
79-year-old female with a history of hypertension, hypercholesterolemia, solitary functional kidney, osteoporosis, who presents with sepsis secondary to community-acquired pneumonia.
PLAN:
Sepsis: Tachycardia, tachypnea, fever
Secondary to community-acquired pneumonia. Likely viral at onset. Possibly superimposed bacterial pneumonia.
CXR with increased bronchovascular markings bilaterally some consolidative changes within the lower lobes posteriorly, likely atelectasis vs PNA. Lactate negative, COVID/flu negative
- Bolus IVFs
- Ceftriaxone and azithromycin started in the ED. Originally on 3 L nasal cannula, weaned to room air in ED.
- Admit to floors. Will continue ceftriaxone and doxycycline
- Mucolytics, Acapella, incentive Willis
- Will check MRSA screen, sputum cultures, urine antigens
- ID consult
Hypertension: Continue amlodipine
Hypercholesterolemia: Continue atorvastatin
Solitary functioning kidney: Stable kidney function
Osteoporosis: On risedronate monthly
DVT prophylaxis: Lovenox
CODE STATUS: Full code
POA/family updates: Darnell () [phone]
[2024-08-10] MEDS: NSS 1000 IV (13:54)
[2024-08-10] MEDS: NORVASC 10 MG PO (13:54)
[2024-08-10] MEDS: ASPIR LOW (ENTERIC COATED) 81 MG PO (13:54)
[2024-08-10] MEDS: NSS 250 IV (15:03)
--- NOTE | 2024-08-10 16:11 | CON.ID ---
Consultation
-
Date/Time Consultation Requested: August 10, 2024 1505
Date/Time Consultation Performed: August 10, 2024 1615
Requesting Provider: Dr. Kelsey Cedeno
Performing Provider: Dr. Chelsey Man
Reason for Consultation: Pneumonia
Chief Complaint / Past History
Chief Complaint
Cough
History of Present Illness
Carol Patrick is a 79-year-old female with history of hypertension, solitary functioning kidney, recent hospitalization from July 02 to July 06 with left obstructive uropathy, Proteus complicated UTI/bacteremia, status post left ureter stent
placement on July 02 subsequently removed July 24, she completed amoxicillin on July 17. She was doing well until few days ago when she developed upper respiratory symptoms of sinus congestion, rhinorrhea, headache. She then developed significant
cough with fevers and chills. Her throat is sore from coughing. She has difficulty bringing up the sputum. No ill contacts. No recent travel. In the ER temperature 100.1. Chest x-ray with low lung volumes with bibasilar consolidations. She
was started on ceftriaxone and oral doxycycline. No nausea vomiting or diarrhea. No urinary symptoms. No flank pain.
Past History
Additional Past Medical History:
HTN
Dyslipidemia
Nephrolithiasis s/p left ureter stent -> stone extraction, stent removal 07/24/24
Solitary functioning kidney
Past Surgical History: None
Allergy History:
No Known Allergies Allergy (Verified 08/10/24 04:44)
Medications Reviewed: Yes
Current Antibiotics:
Ceftriaxone
Doxycycline
Social History
Tobacco: Non-Smoker
Alcohol: Occasional
Drug: None
Personal:
Living: With Family
Employment: Retired
Family History
Family History: Not Pertinent
Review of Systems
Review of Systems
General: Fever and Change in Appetite
HEENT: Headache
Cardiovascular: Negative Chest Pain
Respiratory: Dyspnea and Cough
Gasteroenterology: Negative Nausea, Vomiting or Diarrhea
Genital / Urological: Negative Dysuria or Flank Pain
Endocrine: Weakness
Neurological: Negative Dizziness
All systems: All other systems were reviewed and were negative
Vital Signs
Temp Pulse Resp BP Pulse Ox
98.9 F 119 18 144/83 95
08/10/24 15:25 08/10/24 15:25 08/10/24 15:25 08/10/24 15:25 08/10/24 15:25
Physical Exam
Physical Exam
Constitutional: Acutely Ill
Head: Other (No frontal or max or sinus tenderness)
Eyes: No Conjunctival Hemorrhage and Sclera Anicteric
Cardiovascular: Regular Rate and S1/S2
Pulmonary: Rhonchi and Coarse (R Base>L base)
Gastrointestinal: Soft, Non Tender, Non Distended and Normal Bowel Sounds
Genito-Urinary: Negative CVA Tenderness
Extremities: Negative Edema
Neurological: AO x 3
Lab / Diagnostic Study Results
08/10/24 06:57
08/10/24 06:57
Abs Immat Gran (auto) 0.0 10^3/uL (0-0.05) 08/10/24 06:57
Absolute Neuts (auto) 5.3 10^3/uL (1.4-6.5) 08/10/24 06:57
Absolute Lymphs (auto) 1.3 10^3/uL (1.2-3.4) 08/10/24 06:57
Absolute Monos (auto) 0.5 10^3/uL (0.1-0.6) 08/10/24 06:57
Absolute Basos (auto) 0.0 10^3/uL (0-0.2) 08/10/24 06:57
Immature Gran % 0.3 % (0-0.5) 08/10/24 06:57
Neutrophils % 73.1 % (42.2-75.2) 08/10/24 06:57
Lymphocytes % 17.6 % (20.5-51.1) L 08/10/24 06:57
Monocytes % 7.2 % (1.7-9.3) 08/10/24 06:57
Eosinophils % 1.5 % (0-6) 08/10/24 06:57
Basophils % 0.3 % (0-2) 08/10/24 06:57
Lactic Acid 0.7 mmol/L (0.7-2.0) 08/10/24 06:57
Microbiology Results
Micro:
08/10/24 13:39 MRSA Screen - Pending
Nose
08/10/24 04:54 Influenza Types A & B (PRISCILLA) - Final
Nasal Swab Negative for Influenza A & B, NAAT
Negative results must be combined with clinical observations
and patient history.
Nucleic Acid Amplification test (NAAT)performed on the
[employer] NOW platform.
08/10/24 CXR: Low lung volumes with increased bronchovascular markings bilaterally. On the lateral view, there appear to be some consolidative changes within the lower lobes posteriorly, likely atelectasis with pneumonia not excluded in the
appropriate clinical setting.
Assessment / Plan
# PNA/CAP
- Agree with sputum cx, urine legionella ag, urine pneumococcal ag.
- Agree with ceftriaxone and doxycycline for now.
- Supportive care with guaifenesin and Afrin nasal spray.
- Follow temps
[2024-08-10] MEDS: LOVENOX 40 MG SC (17:15)
[2024-08-10] MEDS: LIPITOR 20 MG PO (17:16)
[2024-08-10] MEDS: ANESTHETIC LOZENGE 1 LOZENGE PO (17:16)
[2024-08-10] MEDS: MUCINEX 600 MG PO (20:34)
[2024-08-10] MEDS: AFRIN NASAL SPRAY 2 SPRAYS NASAL (20:34)
[2024-08-10] MEDS: TYLENOL 650 MG PO (20:34)
[2024-08-10] MEDS: VIBRAMYCIN 100 MG PO (20:34)
[2024-08-10] MEDS: XALATAN OPHTHALMIC SOLUTION 1 DROP RIGHT EYE (20:35)
[2024-08-11 00:43] VITALS: BP 120/72
[2024-08-11 05:56] LABS: Hematocrit 34.7 % (37.0-47.0); Hemoglobin 11.5 g/dL (12.0-16.0); Mean Corp Hgb Conc. 33.1 g/dL (33.0-37.0); Mean Corpuscular Hgb 28.8 pg (27.0-31.0); Mean Corpuscular Volume 86.8 fL (81.0-99.0); Mean Platelet Volume 11.2 fL (7.4-10.4); Platelet Count 118 10^3/uL (130-400); Red Cell Dist. Width 16.4 % (11.5-14.5); White Blood Cell Count 10.4 10^3/uL (4.8-10.8)
[2024-08-11 06:14] LABS: Blood Urea Nitrogen 16 mg/dl (7-17); Calcium 8.3 mg/dl (8.4-10.2); Carbon Dioxide 23 mmol/L (22-30); Chloride 108 mmol/L (98-107); Estimated Creatinine Clearance 48 ml/min; Glucose 96 mg/dl (70-99); Potassium 3.5 mmol/L (3.5-5.1); Sodium 142 mmol/L (135-145); eGFR > 60.00
[2024-08-11] MEDS: ROCEPHIN 2000 MG IV (08:29)
[2024-08-11 08:30] VITALS: BP 148/109
[2024-08-11] MEDS: STERILE WATER FOR INJECTION 20 ML IV (08:30)
[2024-08-11] MEDS: FLUSH (NSS) 2 FLUSH IV (08:30)
[2024-08-11] MEDS: NORVASC 10 MG PO (08:39)
[2024-08-11] MEDS: VIBRAMYCIN 100 MG PO ×2 (08:39→20:16)
[2024-08-11] MEDS: MUCINEX 600 MG PO ×2 (08:39→20:17)
[2024-08-11] MEDS: AFRIN NASAL SPRAY NASAL (10:33)
[2024-08-11 10:40] VITALS: BP 128/69
--- NOTE | 2024-08-11 11:02 | W.PN.HOSP.TC ---
Today's Communication/Plan
-
Assessment / Plan
Assessment / Plan
NAD
Scleral Anicteric
MMM
No JVD
CTABL
RRR, S1/S2
Soft, NT, ND, BS+
Warm, Dry
AAOx3
Calm
Acute hypoxemic respiratory failure secondary to pneumonia likely CAP for superimposed bacterial
PSI 78 and curb 65 of 1
Wean oxygen as tolerated
Continue Rocephin doxycycline
Follow-up on sputum culture
Urinary antigens Legionella/strep negative
Encourage Acapella and incentive spirometer use
PT OT
Hypertension
Continue amlodipine
Hyperlipidemia
Continue Lipitor
Solitary kidney
Renal function stable
Avoid nephrotoxins hypotension
Osteoporosis
Continue bisphosphonate
Anticipated Discharge: > 48 hours
Subjective/Interval History
-
Date of Service: August 11, 2024
seen and examined. no new complaints. no acute overnight events
Objective Data
-
Labs:
Laboratory Results
08/11/24
05:36
WBC 10.4
Hgb 11.5 L
Hct 34.7 L
Plt Count 118 L
Sodium 142
Potassium 3.5
Chloride 108 H
Carbon Dioxide 23
BUN 16
Creatinine 0.9
Glucose 96
Calcium 8.3 L
Vital Signs:
Vital Signs
Temp Pulse Resp BP Pulse Ox
98.2 F 92 18 128/69 94
08/11/24 08:30 08/11/24 10:40 08/11/24 08:30 08/11/24 10:40 08/11/24 08:30
I&O
08/10/24 08/11/24 08/12/24
06:59 06:59 06:59
Intake Total 480 / 480
Balance 480 / 480
--- NOTE | 2024-08-11 13:57 | W.PN.ID1 ---
Date of Service
Date of Service: August 11, 2024
Today's Communication
Bcx x 2
Continue ceftriaxone/doxy.
Assessment / Plan
# PNA/CAP
# Fever
- sputum cx pending
- urine legionella ag, urine pneumococcal ag neg
- blood cx's x 2
- Continue ceftriaxone and doxycycline (d2)
- Supportive care with guaifenesin and Afrin nasal spray.
- Follow temps
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
HTN
Dyslipidemia
Nephrolithiasis s/p left ureter stent -> stone extraction, stent removal 07/24/24
Solitary functioning kidney
Chief Complaint
-: Pneumonia
Subjective / Review of Systems
Cough better today.
Vital Signs / Physical Exam
Vital Signs
Vital Signs
Temp Pulse Resp BP Pulse Ox
98.2 F 92 18 128/69 94
08/11/24 08:30 08/11/24 10:40 08/11/24 08:30 08/11/24 10:40 08/11/24 08:30
Selected Entries
08/10/24
20:40 08/10/24
22:11
Temp 103 F H 101.1 F H
Physical Exam
Constitutional: Comfortable
Cardiovascular: Regular Rate and S1/S2
Pulmonary: Rales (Crackles left >R base) and Coarse (bases)
Gastrointestinal: Soft, Non Tender, Non Distended and Normal Bowel Sounds
Genito-Urinary: Negative CVA Tenderness
Extremities: Negative Edema
Neurological: AO x 3
Objective Data
Lab Data
Lab Results
08/11/24 05:36
08/11/24 05:36
Estimated Creat Clear 48 ml/min 08/11/24 05:36
Lactic Acid 0.7 mmol/L (0.7-2.0) 08/10/24 06:57
Total Bilirubin 1.0 mg/dl (0.2-1.3) 08/10/24 06:57
AST 33 U/L (14-36) 08/10/24 06:57
ALT 23 U/L (0-35) 08/10/24 06:57
Alkaline Phosphatase 67 U/L (38-126) 08/10/24 06:57
Most recent labs reviewed.
Micro Results:
08/10/24 13:39 MRSA Screen - Final
Nose No Methicillin Resistant Staphylococcus aureus isolated.
08/11/24 10:58 Respiratory Culture - Pending
Sputum Gram Stain - Pending
08/11/24 01:29 Legionella Urinary Antigen - Final
Urine Negative for Legionella pneumophila Serogroup 1 antigen.
A negative result does not rule out the possiblity of
Legionella infection due to other serogroups or species of
Legionella. Clinical correlation is recommended.
Streptococcus pneumoniae Antigen (M - Final
Negative for Streptococcus pneumoniae antigen.
A negative result does not exclude infection with
Streptococcus pneumoniae. Clinical correlation is
recommended.
08/10/24 04:54 Influenza Types A & B (PRISCILLA) - Final
Nasal Swab Negative for Influenza A & B, NAAT
Negative results must be combined with clinical observations
and patient history.
Nucleic Acid Amplification test (NAAT)performed on the
[employer] platform.
08/10/24 CXR: Low lung volumes with increased bronchovascular markings bilaterally. On the lateral view, there appear to be some consolidative changes within the lower lobes posteriorly, likely atelectasis with pneumonia not excluded in the
appropriate clinical setting.
--- NOTE | 2024-08-11 15:03 | CM ---
Attempted to meet with pt to complete dc planning assessment, however pt requested CM come back at a later time.
CM to follow up.
[2024-08-11 15:21] VITALS: BP 127/69
[2024-08-11 15:50] VITALS: BP 142/67
[2024-08-11] MEDS: LIPITOR 20 MG PO (17:09)
[2024-08-11] MEDS: LOVENOX 40 MG SC (17:09)
[2024-08-11] MEDS: XALATAN OPHTHALMIC SOLUTION 1 DROP RIGHT EYE (20:16)
[2024-08-11 23:00] VITALS: BP 118/66
[2024-08-12 06:42] LABS: Hematocrit 34.1 % (37.0-47.0); Hemoglobin 11.7 g/dL (12.0-16.0); Mean Corp Hgb Conc. 34.3 g/dL (33.0-37.0); Mean Corpuscular Hgb 29.5 pg (27.0-31.0); Mean Corpuscular Volume 85.9 fL (81.0-99.0); Mean Platelet Volume 11.7 fL (7.4-10.4); Platelet Count 131 10^3/uL (130-400); Red Blood Cell Count 3.97 10^6/uL (4.20-5.40); Red Cell Dist. Width 16.1 % (11.5-14.5); White Blood Cell Count 7.6 10^3/uL (4.8-10.8)
[2024-08-12 07:01] LABS: Blood Urea Nitrogen 18 mg/dl (7-17); Calcium 8.9 mg/dl (8.4-10.2); Carbon Dioxide 23 mmol/L (22-30); Chloride 109 mmol/L (98-107); Estimated Creatinine Clearance 48 ml/min; Glucose 91 mg/dl (70-99); Potassium 3.5 mmol/L (3.5-5.1); Sodium 144 mmol/L (135-145); eGFR > 60.00
[2024-08-12 07:35] VITALS: BP 126/66
[2024-08-12] MEDS: NORVASC 10 MG PO (08:33)
[2024-08-12] MEDS: STERILE WATER FOR INJECTION 20 ML IV (08:34)
[2024-08-12] MEDS: MUCINEX 600 MG PO ×2 (08:34→20:56)
[2024-08-12] MEDS: ROCEPHIN 2000 MG IV (08:34)
[2024-08-12] MEDS: VIBRAMYCIN 100 MG PO ×2 (08:34→20:56)
[2024-08-12] MEDS: FLUSH (NSS) 2 FLUSH IV (08:35)
[2024-08-12 09:05] VITALS: BP 129/77; O2SAT 98
--- NOTE | 2024-08-12 10:21 | W.PN.HOSP.TC ---
Today's Communication/Plan
-
IV antibiotics with Rocephin doxycycline
Wean oxygen as tolerated
Continue incentive spirometer Acapella use
Follow-up on blood cultures and sputum cultures
Assessment / Plan
Assessment / Plan
NAD
Scleral Anicteric
MMM
No JVD
Diminished breath sound
RRR, S1/S2
Soft, NT, ND, BS+
Warm, Dry
AAOx3
Calm
Acute hypoxemic respiratory failure secondary to pneumonia likely CAP for superimposed bacterial
PSI 78 and curb 65 of 1
Wean oxygen as tolerated, improving now on 3 L
Continue Rocephin doxycycline
Follow-up on sputum culture
Urinary antigens Legionella/strep negative
Encourage Acapella and incentive spirometer use
Blood cultures pending
PT OT following
Hypertension
Continue amlodipine
Hyperlipidemia
Continue Lipitor
Solitary kidney
Renal function stable
Avoid nephrotoxins hypotension
Osteoporosis
Continue bisphosphonate
Anticipated Discharge: > 48 hours
Subjective/Interval History
-
Date of Service: August 12, 2024
Seen and examined. No new complaints. No acute overnight events
Objective Data
-
Labs:
Laboratory Results
08/12/24
06:07
WBC 7.6
Hgb 11.7 L
Hct 34.1 L
Plt Count 131
Sodium 144
Potassium 3.5
Chloride 109 H
Carbon Dioxide 23
BUN 18 H
Creatinine 0.9
Glucose 91
Calcium 8.9
Vital Signs:
Vital Signs
Temp Pulse Resp BP Pulse Ox
97.7 F 84 18 126/66 97
08/12/24 07:35 08/12/24 08:33 08/12/24 07:35 08/12/24 08:33 08/12/24 09:43
I&O
08/11/24 08/12/24 08/13/24
06:59 06:59 06:59
Intake Total 480 / 480 1440 / 1440
Balance 480 / 480 1440 / 1440
--- NOTE | 2024-08-12 14:57 | W.PN.ID1 ---
Date of Service
Date of Service: August 12, 2024
Today's Communication
Continue ceftriaxone/doxy.
Assessment / Plan
# PNA/CAP
# Fever -resolved
- sputum cx usual rep aleja
- urine legionella ag, urine pneumococcal ag neg
- blood cx's x 2
- Continue ceftriaxone and doxycycline (d3)
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
HTN
Dyslipidemia
Nephrolithiasis s/p left ureter stent -> stone extraction, stent removal 07/24/24
Solitary functioning kidney
Chief Complaint
-: Pneumonia
Subjective / Review of Systems
Cough now productive - brown sputum.
Overall feels improved.
Vital Signs / Physical Exam
Vital Signs
Vital Signs
Temp Pulse Resp BP Pulse Ox
97.7 F 84 18 126/66 97
08/12/24 07:35 08/12/24 08:33 08/12/24 07:35 08/12/24 08:33 08/12/24 09:43
Physical Exam
Constitutional: Comfortable
Cardiovascular: Regular Rate and S1/S2
Pulmonary: Rales (Crackles bibase)
Gastrointestinal: Soft, Non Tender, Non Distended and Normal Bowel Sounds
Genito-Urinary: Negative CVA Tenderness
Extremities: Negative Edema
Neurological: AO x 3
Objective Data
Lab Data
Lab Results
08/12/24 06:07
08/12/24 06:07
Estimated Creat Clear 48 ml/min 08/12/24 06:07
Lactic Acid 0.7 mmol/L (0.7-2.0) 08/10/24 06:57
Total Bilirubin 1.0 mg/dl (0.2-1.3) 08/10/24 06:57
AST 33 U/L (14-36) 08/10/24 06:57
ALT 23 U/L (0-35) 08/10/24 06:57
Alkaline Phosphatase 67 U/L (38-126) 08/10/24 06:57
Most recent labs reviewed.
Micro Results:
08/11/24 14:39 Blood Culture - Preliminary
Blood/Venous No Growth in 24 hours- Final report to follow
08/11/24 10:58 Respiratory Culture - Preliminary
Sputum Usual Respiratory Aleja
Gram Stain - Preliminary
08/11/24 15:43 Blood Culture - Pending
Blood/Venous
08/10/24 13:39 MRSA Screen - Final
Nose No Methicillin Resistant Staphylococcus aureus isolated.
08/11/24 01:29 Legionella Urinary Antigen - Final
Urine Negative for Legionella pneumophila Serogroup 1 antigen.
A negative result does not rule out the possiblity of
Legionella infection due to other serogroups or species of
Legionella. Clinical correlation is recommended.
Streptococcus pneumoniae Antigen (M - Final
Negative for Streptococcus pneumoniae antigen.
A negative result does not exclude infection with
Streptococcus pneumoniae. Clinical correlation is
recommended.
08/10/24 04:54 Influenza Types A & B (PRISCILLA) - Final
Nasal Swab Negative for Influenza A & B, NAAT
Negative results must be combined with clinical observations
and patient history.
Nucleic Acid Amplification test (NAAT)performed on the
[employer] platform.
08/10/24 CXR: Low lung volumes with increased bronchovascular markings bilaterally. On the lateral view, there appear to be some consolidative changes within the lower lobes posteriorly, likely atelectasis with pneumonia not excluded in the
appropriate clinical setting.
[2024-08-12 15:30] VITALS: BP 136/66
[2024-08-12] MEDS: LOVENOX 40 MG SC (17:29)
[2024-08-12] MEDS: LIPITOR 20 MG PO (17:29)
[2024-08-12] MEDS: XALATAN OPHTHALMIC SOLUTION 1 DROP RIGHT EYE (20:59)
[2024-08-12 22:46] VITALS: BP 141/79
[2024-08-13 07:40] VITALS: BP 130/68
[2024-08-13] MEDS: NORVASC 10 MG PO (08:46)
[2024-08-13] MEDS: VIBRAMYCIN 100 MG PO (08:46)
[2024-08-13] MEDS: MUCINEX 600 MG PO (08:46)
[2024-08-13] MEDS: ROCEPHIN 2000 MG IV (08:47)
[2024-08-13] MEDS: STERILE WATER FOR INJECTION 20 ML IV (08:48)
--- NOTE | 2024-08-13 11:21 | W.PN.ID1 ---
Date of Service
Date of Service: August 13, 2024
Today's Communication
At time of dc, transition to Augmentin 875mg po bid and doxycycline 100mg po bid through 08/19/24.
Assessment / Plan
# PNA/CAP
# Fever -resolved
- sputum cx usual rep aleja
- urine legionella ag, urine pneumococcal ag neg
- blood cx's x 2
- Wean O2 as able.
- Continue ceftriaxone and doxycycline (d4)
- At time of dc, transition to Augmentin 875mg po bid and doxycycline 100mg po bid through 08/19/24.
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
HTN
Dyslipidemia
Nephrolithiasis s/p left ureter stent -> stone extraction, stent removal 07/24/24
Solitary functioning kidney
Chief Complaint
-: Pneumonia
Subjective / Review of Systems
Feeling much improved. Will like to go home.
Vital Signs / Physical Exam
Vital Signs
Vital Signs
Temp Pulse Resp BP Pulse Ox
98.6 F 80 14 130/68 97
08/13/24 07:40 08/13/24 08:46 08/13/24 07:40 08/13/24 08:46 08/13/24 09:54
Physical Exam
Constitutional: Comfortable
Cardiovascular: Regular Rate and S1/S2
Pulmonary: Rales (Crackles bibase)
Gastrointestinal: Soft, Non Tender, Non Distended and Normal Bowel Sounds
Genito-Urinary: Negative CVA Tenderness
Extremities: Negative Edema
Neurological: AO x 3
Objective Data
Lab Data
Lab Results
08/12/24 06:07
08/12/24 06:07
Estimated Creat Clear 48 ml/min 08/12/24 06:07
Lactic Acid 0.7 mmol/L (0.7-2.0) 08/10/24 06:57
Total Bilirubin 1.0 mg/dl (0.2-1.3) 08/10/24 06:57
AST 33 U/L (14-36) 08/10/24 06:57
ALT 23 U/L (0-35) 08/10/24 06:57
Alkaline Phosphatase 67 U/L (38-126) 08/10/24 06:57
Most recent labs reviewed.
Micro Results:
08/11/24 15:43 Blood Culture - Preliminary
Blood/Venous No Growth in 24 hours- Final report to follow
08/11/24 14:39 Blood Culture - Preliminary
Blood/Venous No Growth in 24 hours- Final report to follow
08/11/24 10:58 Respiratory Culture - Preliminary
Sputum Usual Respiratory Aleja
Gram Stain - Preliminary
08/10/24 13:39 MRSA Screen - Final
Nose No Methicillin Resistant Staphylococcus aureus isolated.
08/11/24 01:29 Legionella Urinary Antigen - Final
Urine Negative for Legionella pneumophila Serogroup 1 antigen.
A negative result does not rule out the possiblity of
Legionella infection due to other serogroups or species of
Legionella. Clinical correlation is recommended.
Streptococcus pneumoniae Antigen (M - Final
Negative for Streptococcus pneumoniae antigen.
A negative result does not exclude infection with
Streptococcus pneumoniae. Clinical correlation is
recommended.
08/10/24 04:54 Influenza Types A & B (PRISCILLA) - Final
Nasal Swab Negative for Influenza A & B, NAAT
Negative results must be combined with clinical observations
and patient history.
Nucleic Acid Amplification test (NAAT)performed on the
[employer] platform.
08/10/24 CXR: Low lung volumes with increased bronchovascular markings bilaterally. On the lateral view, there appear to be some consolidative changes within the lower lobes posteriorly, likely atelectasis with pneumonia not excluded in the
appropriate clinical setting.
Care Review
Plan reviewed with: Physician (Pao Shukla)
[2024-08-13] MEDS: ASPIR LOW (ENTERIC COATED) 81 MG PO (12:31)
[2024-08-13 15:09] VITALS: BP 129/63
--- NOTE | 2024-08-13 15:09 | W.PN.HOSP.TC ---
Addendum entered and electronically signed by Akil Pavon MD 08/13/24 17:26:
Seen and examined by me independently in collaboration with the medical billing service.
Lab data and imaging data reviewed.
Addendum as below :
Patient feels improved and has reached clinical stability from pneumonia standpoint for discharge. Check home O2 evaluation prior to discharge.
Continue antibiotics per ID.
Total of discharge 32 minutes
Original Note:
Today's Communication/Plan
-
Okay to DC to home.
Wean off O2.
Pt declares no need for home PT. DC on Augmentin 875mg po bid and doxycycline 100mg po bid through 08/19/24.
Assessment / Plan
Assessment / Plan
Sepsis:
Acute hypoxemic respiratory failure:
secondary to pneumonia likely CAP or superimposed bacterial
PSI 78 and curb 65 of 1
Wean oxygen as tolerated, improving now on 1L. Sputum cx with usual respiratory aleja. Urinary antigens Legionella/strep negative. Blood cx negative
Continue Rocephin doxycycline while admitted. Okay to DC today. Will transition to Augmentin 875mg po bid and doxycycline 100mg po bid through 08/19/24
Encourage Acapella and incentive spirometer use
PT OT following
Hypertension:
Continue amlodipine
Hyperlipidemia:
Continue Lipitor
Solitary kidney:
Renal function stable
Avoid nephrotoxins or hypotension
Osteoporosis
Continue bisphosphonate
Anticipated Discharge: Today
Subjective/Interval History
-
Date of Service: August 13, 2024
Objective Data
-
Vital Signs:
Vital Signs
Temp Pulse Resp BP Pulse Ox
98.2 F 74 14 129/63 97
08/13/24 15:09 08/13/24 15:09 08/13/24 15:09 08/13/24 15:09 08/13/24 15:09
I&O
08/12/24 08/13/24 08/14/24
06:59 06:59 06:59
Intake Total 1440 / 1440 2159
Balance 1440 / 1440 2159
Review of Systems
-
History Source: Patient
Constitutional: Denies Fever
Respiratory: Denies Trouble Breathing
Cardiac: Denies Chest Pain or Syncope
Abdomen/GI: Denies Abdominal Pain, Nausea, Diarrhea or Constipated
Genitourinary: Denies Dysuria or Difficulty Voiding
Physical Exam
-
General: Well Developed, Well Nourished, No Apparent Distress and Comfortable; Negative Respiratory Distress
HEENT: Normocephalic, Atraumatic and Anicteric
Respiratory: Clear to Auscultation and Non Labored Respirations; Negative Wheezes, Rales, Rhonchi or Crackles
Cardiac: Regular Rhythm and S1/S2; Negative Murmur, Rub or Calf Tenderness
GI: Soft, Nontender, Nondistended and Normal Bowel Sounds
Genito-urinary: No Costovertebral Tender
Musculoskeletal: No Clubbing, No Cyanosis and No Edema
Skin: Warm and Dry; Negative Jaundice
Neuro: Awake, Alert and Oriented
Psych: Calm
--- NOTE | 2024-08-13 17:14 | CM ---
Md entered order for discharge.
Spoke with patient she said she was ready for discharge and IMM reviewed she stated understanding.
Pts Darnell will drive her home.
Weaned off of oxygen . Now room air. Pox 97%.
PLAN Home no needs
--- NOTE | 2024-08-14 17:26 | W.DCSUMMARY ---
Discharge Summary
Discharge Data
Date of Admission: 08/10/24
Date of Discharge: 08/13/24
Total time spent discharging patient (in min): >30min
-
Pending Results: No
Hospital Course
Discharging Physician : Kelsey Cedeno MD., Akil Pavon MD.
Disposition : Home
Primary care physician : Usha Casey DO.
Principal Discharge diagnosis : Sepsis, acute hypoxemic respiratory failure, community-acquired pneumonia
Chronic Discharge diagnosis : essential hypertension, hypercholesterolemia, solitary functioning kidney, osteoporosis
Hospital Course :
79 year old female with above past medical history presented to [facility] ED with respiratory complaints.
In the ED, she was found to be febrile, tachycardic and tachypneic. CXR showed findings suspicious for pneumonia. She initially required 3L O2 nasal cannula, was started on ceftriaxone and Azithromycin, and received bolus IVFs. Ceftriaxone and
Doxycycline were then continued throughout this admission, and supportive care measures were prescribed. Blood and sputum cultures were unremarkable, other tests including CBC, chemistries, Mrsa screen, and legionella/strep antigens were
unremarkable.
Home medications were continued as appropriate. Fever resolved, she continued to improve throughout stay, was weaned to room air, and was clinically stable for discharge to home, to continue Augmentin 875mg po bid and doxycycline 100mg po bid
through 08/19/24. Prompt PCP follow up, and repeat CXR in 6 weeks recommended.
Important imaging findings :
CXR 08/10/2024:
Low lung volumes with increased bronchovascular markings bilaterally. On the lateral view, there appear to be some consolidative changes within the lower lobes posteriorly, likely atelectasis with pneumonia not excluded in the appropriate clinical
setting
Discharge Plan
-
Patient Disposition: Home (Routine Discharge)
Discharge Diagnosis/Procedures: Sepsis, community acquired pneumonia
Condition: Good
Diet: Low Cholesterol
Activity: As tolerated
Driving Restrictions: As prior to admission
Bathing Restrictions: None
Others Tests: Repeat CXR in 6 weeks by PCP
Instructions: Community-acquired pneumonia in adults
Referrals:
Usha Casey, DO [Family Provider] - in less than 1 week
Additional Discharge Medication Instructions: Take Augmentin 875mg twice daily and doxycycline 100mg twice daily through 08/19/24.
You can use over the counter treatments such as mucinex, flonase, and lozenges to help relieve residual symptoms
Follow up shortly with your PCP.
Recommend repeat CXR in 6 weeks by PCP.
Prescriptions:
New
doxycycline hyclate 100 mg Capsule
100 mg PO Q12 7 Days Qty: 13 0RF
guaifenesin 600 mg Tablet Extended Release 12hr
600 mg PO Q12 Qty: 0 0RF
amoxicillin-pot clavulanate 875-125 mg tablet
1 tab PO BID Qty: 13 0RF
Continued
latanoprost 1 DROP drops
1 drp RIGHT EYE HS
atorvastatin 20 MG tablet
20 mg PO QPM
amlodipine 10 MG tablet
10 mg PO DAILY
risedronate 150 mg Tablet
150 mg PO QMONTH
aspirin 81 mg Tablet,Delayed Release (Dr/Ec)
81 mg PO MOWEFR
clobetasol 0.05 % Ointment
1 applic TOPICAL DAILYPRN PRN (Reason: rash)
fluticasone propionate 50 mcg/actuation [place],Suspension
1 spray INTRANASAL BIDPRN PRN (Reason: allergies)
loratadine [Claritin] 10 mg Tablet
10 mg PO DAILYPRN PRN (Reason: allergies)
cholecalciferol (vitamin D3) [Vitamin D3] 50 mcg (2,000 unit) Capsule
50 mcg PO DAILY
Discharge Orders:
Discharge Patient (As Directed); Ordered 08/13/24
Ordered By: Kelsey Cedeno
Discharge Date and Time
Discharge Date/Time: 08/13/24 17:41
Print Language: [place]AST [place]
== END 2024-08-13 17:41 | disposition home or self-care (01) | DRG 871 ==
LOC: 3 WEST ACU 10:33
PROVIDERS: Student in an Organized Health Care Education/Training Program; ADMITTING PHYSICIAN Hospitalist; ATTENDING PHYSICIAN Internal Medicine; CONSULT PHYSICIAN Internal Medicine Infectious Disease; EMERGENCY PHYSICIAN Student in an Organized Health Care Education/Training Program; FAMILY PHYSICIAN Family Medicine
DX: A41.9 Sepsis, unspecified organism (principal); J15.9 Unspecified bacterial pneumonia; J96.01 Acute respiratory failure with hypoxia; Q60.0 Renal agenesis, unilateral; I10 Essential (primary) hypertension; E78.00 Pure hypercholesterolemia, unspecified; H40.9 Unspecified glaucoma; M81.0 Age-related osteoporosis without current pathological fracture; Z79.899 Other long term (current) drug therapy; Z79.82 Long term (current) use of aspirin; Z11.52 Encounter for screening for COVID-19
CPT/HCPCS: 71046; 80048; 80053; 83605; 85025; 85027; 87040; 87070; 87205; 87449; 87502; 87811; 87899; 94640; 96374; 97162; 97166; 97535; 99285